=== PATIENT | female | born 1960 | race Caucasian/White ===

== ENCOUNTER 2021-07-03 08:25 | Outpatient (CLI) | payer OTHER, SELFPAY ==
--- NOTE | ~2021-07-03 | DEXA_ITS ---
Bone Density Report Name: Lucie Crocker Age: 61 Sex: Female Ethnicity: White Date of : 1960 Indication: postmenopausal; screening for osteoporosis; prior fracture; Referring Provider: Estuardo Plunkett Study: Bone densitometry was performed. Exam Date: July 03, 2021 Accession number: [id number] Bone Density: Region BMD T-score Z-score Classification AP Spine(L1-L4) 0.710 -3.1 -1.6 Osteoporosis Femoral Neck (Left) 0.517 -3.0 -1.7 Osteoporosis Total Hip (Left) 0.610 -2.7 -1.8 Osteoporosis Femoral Neck (Right) 0.547 -2.7 -1.4 Osteoporosis Total Hip (Right) 0.691 -2.1 -1.1 Osteopenia Femoral Neck Mean 0.532 -2.9 -1.6 Osteoporosis Total Hip Mean 0.650 -2.4 -1.4 Osteopenia World Health Organization criteria for BMD impression classify patients as: Normal (T-score at or above -1.0), Osteopenia (T-score between -1.0 and -2.5), or Osteoporosis (T-score at or below -2.5). 10-year Fracture Risk: FRAX not reported because: Some T-score for Spine Total or Hip Total or Femoral Neck at or below -2.5 Clinical Information Provided by Patient: Has had a low trauma fracture Has used the following medications: Vitamin D, Calcium Patient maximum height was 67 Menopause Age: 50 No regular weight bearing exercise Does not regularly consume dairy products Drinks caffeinated beverages Onset of menses at age 13 Number of children 0 Impression: The patient has established osteoporosis, based on the Total Spine T-score and the existence of a prior fracture. The patient has risk factors, including: previous fracture. Discussion: HIGH RISK OF FRACTURE. BONE DENSITY IS UNDESIRABLY LOW AT ONE OR MORE SKELETAL SITES, CONSISTENT WITH POSTMENOPAUSAL OSTEOPOROSIS. This patient's lowest T-score, in a patient who has previously fractured, meets the World Health Organization's (WHO) criteria for severe osteoporosis. In untreated patients, the risk of osteoporotic fracture increases approximately two-fold for each 1.0 SD decrease in T-score. Low bone density is not the only risk factor for fracture; also consider factors such as patient's age, frailty or poor health, risk of falling, risk of injury, previous osteoporotic fracture, family history of osteoporosis, cigarette smoking, low body weight, etc. Not everyone with low bone mineral density has osteoporosis; osteomalacia and other metabolic bone disorders should also be considered. Patients who have osteoporosis should be evaluated for specific diseases and conditions (secondary causes) that may cause or contribute to bone loss. The [place] [employer] (AACE) and National Osteoporosis Foundation (NOF) recommend pharmacologic intervention for all postmenopausal women whose T-score is in this range. The patient should follow a he
--- NOTE | ~2021-07-03 | MM_ITS ---
EXAMINATION: MM screening urvashi BI w sofia HISTORY: Screening mammogram TECHNIQUE: Craniocaudal and mediolateral oblique 3-D tomosynthesis images were obtained and synthetic 2-D images were generated. CAD analysis was submitted and interpreted. COMPARISON: 02/27/2010, 12/07/2008 bilateral digital screening mammogram examinations BREAST PARENCHYMAL COMPOSITION: The breasts are heterogeneously dense, which may obscure small masses . FINDINGS: There is no evidence of suspicious mass, calcification, or architectural distortion to sugg est malignancy in either breast. There has been no suspicious interval change. IMPRESSION: 1. No mammographic evidence of malignancy. 2. Recommend routine screening mammography in one year. BI-RADS Category 1: Negative Reviewed, dictated and finalized at location A.
== END 2021-07-03 08:26 | disposition home or self-care (01) ==
LOC: CHSIMG 08:30
PROVIDERS: PCP Internal Medicine; Visit Provider Internal Medicine
DX: Z12.31 Encounter for screening mammogram for malignant neoplasm of breast (principal); Z78.0 Asymptomatic menopausal state
CPT/HCPCS: 77063; 77067; 77080

== ENCOUNTER 2022-09-15 09:57 | Emergency (ER) | payer OTHER, SELFPAY ==
--- NOTE | ~2022-09-15 | XR_ITS ---
XR chest 2V DATE: 09/15/2022 11:02 INDICATION: Cough for 4 days TECHNIQUE: 2 views, PA and lateral projections COMPARISON: 10/08/2014 PA and lateral chest FINDINGS: Normal heart size. No hilar or mediastinal enlargement. No pulmonary infiltrate or consolid ation, pleural effusion or pulmonary vascular congestion or pneumothorax is detected. There is osteopenia. IMPRESSION: No active cardiopulmonary disease Reviewed, dictated and finalized at location L. DOWN WORKER
[2022-09-15 10:00] VITALS: BP 148/90; PULSE 94; RESP 18; TEMP 36.9; O2SAT 96
--- NOTE | 2022-09-15 10:31 | ED.URI ---
HPI - URI/Sore Throat General Chief Complaint: Upper Respiratory Infection Stated Complaint: trouble breathing,deep cough Time Seen by Provider: 09/15/22 10:30 Source: patient and RN notes reviewed Mode of arrival: ambulatory Limitations: no limitations History of Present Illness HPI Narrative: patient has been having cough x4 days. She has coughed up some clear fluid just on 1 episode in last 4 days. She has had some body aches, no nausea vomiting, she said after she coughed really hard she had a scratchy throat but no sore throat as an isolated symptom. She has not had any fever chills. She has been taking [id number] cough medicines she tried 1 that someone else had recommended an last night seemed to make her dizzy. She states that she is allergic to all steroids. She has been a smoker in the past and quit for some time and then took up vaping with nicotine. MD elicited complaint: cough and sore throat (from coughing) Onset (ago): day(s) (4) Consistency: constant and progressively worsening Severity: moderate Description of mucous: clear Able to tolerate fluids by mouth: Yes Exacerbating factors: nothing Relieving factors: nothing Associated symptoms: myalgias Treatments prior to arrival: cold medicine Related Data Home Medications Medication Instructions Recorded Confirmed calcium carbonate-vitamin D3 500 1 cap PO DAILY 09/15/22 09/15/22 mg (1,250 mg)-50 unit capsule calcium polycarbophil 625 mg 1,250 mg PO DAILY 09/15/22 09/15/22 tablet (FiberCon) Allergies Allergy/AdvReac Type Severity Reaction Status Date / Time tetracycline Allergy Unknown Hives Verified 09/15/22 10:10 STEROIDS AdvReac Unknown BAD SIDE Uncoded 01/13/17 08:32 EFFECTS Review of Systems Review of Systems: All systems reviewed & are unremarkable except as noted in HPI and below Constitutional: Constitutional: Denies chills and Denies fever(s) Gastrointestinal: Gastrointestinal: Denies nausea and Denies vomiting [facility] Past Medical History Medical History (Updated 09/15/22 @ 11:38 by Harinder Brand MD) Diverticulosis Osteoporosis Surgical History Surgical History (Updated 09/15/22 @ 11:34 by Harinder Brand MD) No pertinent past surgical history Social History Social History (Updated 09/15/22 @ 11:34 by Harinder Brand MD) Smoking status: Current every day smoker Tobacco type: e-cigarettes/vaping Exam Const: General: healthy appearing, no acute distress and alert Nutritional Appearance: well nourished Orientation/consciousness: patient oriented x3 Limitations: no limitations HENMT: Head: normal to inspection Ears: external ears normal Eyes: Conjunctivae: conjunctivae normal Pupils: Equal, round and reactive pupils present EOM: EOMs intact bilaterally Neck: Neck: normal visual inspection Resp: Effort & Inspection: normal respiratory effort Auscultation: rales diffuse and wheezes scattered wheezes Cardio: Rate: regular rate Rhythm: regular rhythm GI: GI Palp: Yes Soft to palpation and No Tenderness to palpation present (GI) Auscultation: normal bowel sounds Back/Spine/Pelvis: Cervical Spine: cervical ROM normal Thoracic/Lumbar Spine: thoraco-lumbar ROM normal Skin: General skin exam: normal color Rashes: no rashes Neuro: General: patient oriented x3, moves all extremities, no focal motor deficits and CN's II-XI intact bilaterally Speech: normal speech Gait exam (Neuro): Normal gait present Extrem: General: normal to inspection and no clubbing, cyanosis or edema Psych: Mental Status: mental status grossly normal Affect: normal affect Attitude: cooperative Course Vital Signs Vital signs: Vital Signs Temperature 36.9 C 09/15/22 10:00 Pulse Rate 94 09/15/22 10:00 Respiratory Rate 18 09/15/22 10:00 Blood Pressure 148/90 H 09/15/22 10:00 Pulse Oximetry 96 09/15/22 10:00 Oxygen Delivery Room Air 09/15/22 10:00 Temperature 36.9 C 09/15/22 10:00 P
[2022-09-15 11:25] LABS: Influenza A QL RT-PCR Negative (Negative); Influenza B QL RT-PCR Negative (Negative); SARS-CoV-2 RNA PCR Negative (Negative)
[2022-09-15 11:45] VITALS: BP 145/89; PULSE 94; RESP 16; TEMP 36.8; O2SAT 99
== END 2022-09-15 11:50 | disposition home or self-care (01) ==
PROVIDERS: Emergency Provider Emergency Medicine; PCP Internal Medicine
DX: J40 Bronchitis, not specified as acute or chronic (principal); M81.0 Age-related osteoporosis without current pathological fracture; Z20.822 Contact with and (suspected) exposure to COVID-19
CPT/HCPCS: 71046; 87502; 99283; U0003; U0005

== ENCOUNTER 2022-09-23 13:33 | Outpatient (CLI) | payer OTHER, SELFPAY ==
--- NOTE | ~2022-09-23 | MM_ITS ---
EXAMINATION: MM screening urvashi BI w sofia HISTORY: Screening mammogram TECHNIQUE: Craniocaudal and mediolateral oblique 3-D tomosynthesis images were obtained and synthetic 2-D images were generated. CAD analysis was submitted and interpreted. COMPARISON: 07/03/2021, 02/27/2010 bilateral screening mammogram examinations BREAST PARENCHYMAL COMPOSITION: There are scattered areas of fibroglandular density. FINDINGS: There is no evidence of suspicious mass, calcification, or architectural distortion to sugg est malignancy in either breast. There has been no suspicious interval change. IMPRESSION: 1. No mammographic evidence of malignancy. 2. Recommend routine screening mammography in one year. BI-RADS Category 1: Negative Reviewed, dictated and finalized at location A. K PLUG ASSEMBLER
== END 2022-09-23 13:34 | disposition home or self-care (01) ==
LOC: CHSIMG 13:36
PROVIDERS: PCP Internal Medicine; Visit Provider Internal Medicine
DX: Z12.31 Encounter for screening mammogram for malignant neoplasm of breast (principal)
CPT/HCPCS: 77063; 77067

== ENCOUNTER 2022-09-30 09:46 | Outpatient (CLI) | payer OTHER, SELFPAY ==
[2022-09-30 10:00] LABS: Basophils Absolute Auto 0.06 K/mm3 (0.00-0.10); Basophils Percent Auto 1.2 % (0.0-1.0); Eosinophils Absolute Auto 0.23 K/mm3 (0.02-0.50); Eosinophils Percent Auto 4.4 % (1.0-6.0); Hematocrit 44.5 % (35.0-49.0); Hemoglobin 14.4 g/dL (12.0-15.0); Immature Granulocyte Absolute 0.01 K/mm3 (0.00-0.00); Immature Granulocyte Percent A 0.2 % (0.0-0.0); Lymphocytes Absolute Auto 1.66 K/mm3 (1.10-4.50); Lymphocytes Percent Auto 32.1 % (18.0-42.0); Mean Corpuscular HGB Conc 32.4 g/dL (32.0-36.0); Mean Corpuscular Hemoglobin 28.9 pg (27.0-31.0); Mean Corpuscular Volume 89.2 fL (78.0-102.0); Monocytes Percent Auto 5.8 % (2.0-11.0); Neutrophils Absolute Auto 2.9 K/mm3 (1.7-7.2); Neutrophils Percent Auto 56.3 % (50.0-70.0); Platelet Count Result 373 K/mm3 (150-420); Red Blood Count 4.99 M/mm3 (4.20-5.40); Red Cell Distribution Width 13.6 % (11.6-14.4); White Blood Count 5.2 K/mm3 (4.8-10.8)
[2022-09-30 10:02] LABS: Add Urine Microscopic? YES; Appearance Urine Clear (Clear); Bilirubin Urine Negative (Negative); Blood Urine Trace-Intact (Negative); Color Urine Yellow (Yellow); Glucose Urine UA Negative (Negative); Ketones Urine Negative (Negative); Leukocyte Esterase Ur Trace (Negative); Nitrate Urine Negative (Negative); Protein Urine Negative (Negative); Specific Grav Ur >= 1.030 (1.010-1.020); Urobilinogen Urine 0.2 mg/dL (0.2-1.0); pH Urine 5.5 (5.0-8.0)
[2022-09-30 10:08] LABS: Bacteria Urine 1+ /hpf; Mucus Urine Moderate /lpf; RBC Urine 0-2 /hpf (0-2); Squamous Epithelial Cell Urine Few /hpf (Few); WBC Urine 0-3 /hpf (0-3)
[2022-09-30 10:38] LABS: Alanine Aminotransferase 20 U/L (14-59); Albumin Level 3.8 g/dL (3.4-5.0); Alkaline Phosphatase 117 U/L (46-116); Anion Gap 8 mmol/L (8-16); Aspartate Amino Transferase 14 U/L (15-37); Bilirubin,Total 0.7 mg/dL (0.00-1.00); Blood Urea Nitrogen 15 mg/dL (7-18); Calcium 8.9 mg/dL (8.5-10.1); Carbon Dioxide 27 mmol/L (21-32); Chloride 104 mmol/L (98-108); Cholesterol 243 mg/dL (0-200); Estimated Glomerular Filt Rate > 60; Glucose 93 mg/dL (70-99); HDL Direct 79 mg/dL (40-60); LDL Cholesterol Calculated 147 mg/dL (<130); Osmolality Calculated 288 mOsm/kg (285-295); Potassium 3.9 mmol/L (3.5-5.1); Sodium 139 mmol/L (136-145); Thyroid Stimulating Hormone 8.59 uIU/mL (0.36-3.74); Total Protein 7.6 g/dL (6.4-8.2); Triglycerides 87 mg/dL (0-150)
== END 2022-09-30 09:47 | disposition home or self-care (01) ==
LOC: CHSLAB 09:48
PROVIDERS: PCP Internal Medicine; Visit Provider Internal Medicine
DX: Z00.00 Encounter for general adult medical examination without abnormal findings (principal)
CPT/HCPCS: 36415; 80053; 80061; 81001; 84443; 85025

== ENCOUNTER 2023-04-08 09:11 | Outpatient (CLI) | payer OTHER, SELFPAY ==
[2023-04-08 10:13] LABS: Alanine Aminotransferase 21 U/L (14-59); Albumin Level 3.7 g/dL (3.4-5.0); Alkaline Phosphatase 103 U/L (46-116); Anion Gap 10 mmol/L (8-16); Aspartate Amino Transferase 17 U/L (15-37); Bilirubin,Total 0.7 mg/dL (0.00-1.00); Blood Urea Nitrogen 16 mg/dL (7-18); Carbon Dioxide 26 mmol/L (21-32); Chloride 107 mmol/L (98-108); Estimated Glomerular Filt Rate > 60; Free T3 2.45 pg/mL (2.18-3.98); Free T4 Free Thyroxine 0.99 ng/dL (0.76-1.46); Glucose 90 mg/dL (70-99); Osmolality Calculated 297 mOsm/kg (285-295); Potassium 4.1 mmol/L (3.5-5.1); Sodium 143 mmol/L (136-145); Thyroid Stimulating Hormone 7.02 uIU/mL (0.36-3.74); Total Protein 7.1 g/dL (6.4-8.2)
[2023-04-09 11:13] LABS: Cholesterol 213 mg/dL (0-200); HDL Direct 78 mg/dL (40-60); LDL Cholesterol Calculated 125 mg/dL (<130); Triglycerides 51 mg/dL (0-150)
[2023-04-13 05:28] LABS: Thyroid Peroxidase Antibodies 116 IU/mL (<9)
== END 2023-04-08 09:12 | disposition home or self-care (01) ==
LOC: CHSLAB 09:14
PROVIDERS: PCP Internal Medicine; Visit Provider Internal Medicine
DX: E03.9 Hypothyroidism, unspecified (principal); E78.5 Hyperlipidemia, unspecified
CPT/HCPCS: 36415; 80053; 80061; 84439; 84443; 84481; 86376

== ENCOUNTER 2023-04-16 11:29 | Outpatient (CLI) | payer OTHER, SELFPAY ==
--- NOTE | ~2023-04-16 | XR_ITS ---
Left Hand Technique: PA, oblique, and lateral views were obtained. Clinical History: Thumb pain Findings: No acute fracture or dislocation is seen. There is severe osteoarthrosis at the first CMC j oint. Remaining joint spaces are preserved. Soft tissues are unremarkable. 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 Reviewed, dictated and finalized at location . 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
== END 2023-04-16 11:30 | disposition home or self-care (01) ==
LOC: CHSIMG 11:31
PROVIDERS: PCP Internal Medicine; Visit Provider Internal Medicine
DX: M79.645 Pain in left finger(s) (principal); M18.12 Unilateral primary osteoarthritis of first carpometacarpal joint, left hand
CPT/HCPCS: 73120

== ENCOUNTER 2023-08-23 11:27 | Outpatient (CLI) | payer OTHER, SELFPAY ==
[2023-08-23 11:45] LABS: Basophils Absolute Auto 0.07 K/mm3 (0.00-0.10); Basophils Percent Auto 1.2 % (0.0-1.0); Eosinophils Absolute Auto 0.26 K/mm3 (0.02-0.50); Eosinophils Percent Auto 4.6 % (1.0-6.0); Hematocrit 42.6 % (35.0-49.0); Hemoglobin 13.8 g/dL (12.0-15.0); Immature Granulocyte Absolute 0.03 K/mm3 (0.00-0.00); Immature Granulocyte Percent A 0.5 % (0.0-0.0); Lymphocytes Absolute Auto 1.65 K/mm3 (1.10-4.50); Lymphocytes Percent Auto 29.3 % (18.0-42.0); Mean Corpuscular HGB Conc 32.4 g/dL (32.0-36.0); Mean Corpuscular Hemoglobin 29.3 pg (27.0-31.0); Mean Corpuscular Volume 90.4 fL (78.0-102.0); Mean Platelet Volume 9.2 fl (9.2-11.8); Monocytes Absolute Auto 0.36 K/mm3 (0.10-0.90); Monocytes Percent Auto 6.4 % (2.0-11.0); Neutrophils Absolute Auto 3.3 K/mm3 (1.7-7.2); Platelet Count Result 305 K/mm3 (150-420); Red Blood Count 4.71 M/mm3 (4.20-5.40); Red Cell Distribution Width 13.8 % (11.6-14.4); White Blood Count 5.6 K/mm3 (4.8-10.8)
[2023-08-23 12:13] LABS: Alanine Aminotransferase 24 U/L (14-59); Albumin Level 3.9 g/dL (3.4-5.0); Alkaline Phosphatase 94 U/L (46-116); Anion Gap 4 mmol/L (8-16); Aspartate Amino Transferase 20 U/L (15-37); Bilirubin,Total 0.6 mg/dL (0.00-1.00); Blood Urea Nitrogen 19 mg/dL (7-18); Calcium 9.1 mg/dL (8.5-10.1); Carbon Dioxide 31 mmol/L (21-32); Chloride 103 mmol/L (98-108); Estimated Glomerular Filt Rate > 60; Free T3 2.84 pg/mL (2.18-3.98); Free T4 Free Thyroxine 0.96 ng/dL (0.76-1.46); Glucose 96 mg/dL (70-99); Osmolality Calculated 288 mOsm/kg (285-295); Potassium 4.4 mmol/L (3.5-5.1); Sodium 138 mmol/L (136-145); Total Protein 7.4 g/dL (6.4-8.2)
[2023-08-23 12:19] LABS: CRP < 0.5 mg/dL (0.0-0.9)
== END 2023-08-23 11:28 | disposition home or self-care (01) ==
LOC: CHSLAB 11:31
PROVIDERS: PCP Internal Medicine; Visit Provider Internal Medicine
DX: H53.9 Unspecified visual disturbance (principal); R05.9 Cough, unspecified; E03.9 Hypothyroidism, unspecified
CPT/HCPCS: 36415; 80053; 84439; 84443; 84481; 85025; 86140

== ENCOUNTER 2024-09-21 08:16 | Outpatient (CLI) | payer OTHER, SELFPAY ==
--- NOTE | ~2024-09-21 | MM_ITS ---
EXAMINATION: MM screening urvashi BI w sofia HISTORY: Screening TECHNIQUE: Craniocaudal and mediolateral oblique 3-D tomosynthesis images were obtained and synthetic 2-D images were generated. CAD analysis was submitted and interpreted. COMPARISON: Comparison to multiple prior studies sequentially, with oldest reviewed study dated 06/14. BREAST PARENCHYMAL COMPOSITION: Not dense: There are scattered areas of fibroglandular density. FINDINGS: There is no evidence of suspicious mass, calcification, or architectural distortion to sugg est malignancy in either breast. There has been no suspicious interval change. IMPRESSION: 1. No mammographic evidence of malignancy. 2. Recommend routine screening mammography in one year. BI-RADS Category 1: Negative Reviewed, dictated and finalized at location B. LIENT TILE INSTALLER
== END 2024-09-21 08:17 | disposition home or self-care (01) ==
LOC: CHSIMG 08:17
PROVIDERS: PCP Internal Medicine; Visit Provider Internal Medicine
DX: Z12.31 Encounter for screening mammogram for malignant neoplasm of breast (principal)
CPT/HCPCS: 77063; 77067

== ENCOUNTER 2024-10-26 09:07 | Outpatient (CLI) | payer OTHER, SELFPAY ==
--- OUTSIDE RECORDS SUMMARY | 2024-10-26 09:27 | XMS_ITS | Clinical Summary ---
Author Organization [facility] Address [address] [place] [id number] Care Team Providers Care Chemistry Tutor Name Role Phone Unavailable Primary Care Provider Unavailabl e Social History Tobacco Use Types Packs/Day Years Used Date Smoking Tobacco: Never Assessed Comments Unknown Sex and Gender Information Value Date Recorded Sex Assigned at Not on file Legal Sex Female 7:24 PM CDT Gender Identity Not on file Sexual Orientation Not on file Plan of Treatment Health Maintenance Due Date Last Done Comments Cervical Cancer Screening Pa p Smear (Age 30 to 64) Every 3 Years 1960 Colorectal Cancer Screening Colonoscopy (10 Years) 1960 Annual Physical 01/03/1964 Hepatitis C 1979 DTaP, Tdap and Td Vaccines ( 1 - Tdap) 01/03/1980 Cervical Cancer Screening Pa p with HPV Testing (Age 30 to 64) Every 5 Years 1991 Cervical Cancer Screening with HPV 1991 Mammogram Screening 2001 Zoster Vaccines (1 of 2) 2011 COVID-19 Vaccine (2023-2 5 season) 2024 Influenza Adult (#1) 2024 RSV Immunization or 60+ Years (1 - 1-dose 75+ series) 01/03/2036 Meningococcal B Vaccine Aged Out No l onger eligible based on patient's age to complete this topic Meningococcal Vaccine Aged Out No omkar vinny eligible based on patient's age to complete this topic Pneumococcal Vaccine: Pediat rics (0 to 5 Years) and At-Risk Patients (6 to 64 Years) Aged Out No longer eligible b ased on patient's age to complete this topic RSV Immunizations Under 20 Months Aged Out No longer eligible based on patient's age to complete this topic
--- OUTSIDE RECORDS SUMMARY | 2024-10-26 09:27 | XMS_ITS | Clinical Summary ---
Author Organization [facility] Address [address] [place] [address] Phone Care Team Providers Care Border [employer] Name Role Phone Estuardo Plunkett MD Primary Care Provider [phone] Allergies Active Allergy Reactions Criticality Noted Date Comments Tetracycline Rash 10/09/2024 Medications buPROPion (WELLBUTRIN) 150 MG XL tablet Take 150 mg by mouth every morning. Active naltrexone (DEPADE) 50 MG Tablet Take 50 mg by mouth daily. Active polycarbophil calcium (FiberCon) 625 MG Tablet Take 625 mg by mouth 2 times daily. Takes 2 tablets bid Active Cholecalciferol (VITAMIN D-3 PO) Take 1 Tablet by mouth daily. Active MAGNESIUM PO Take 1 Tablet by mouth 2 times daily. Active Nutritional Supplements (JUICE PLUS FIBRE PO) Take 2 Capsules by mouth daily. Active aspirin 81 MG Chewable Tablet Take 1 Tablet by mouth daily for 90 days. 90 Tablet 5 01/10/20 25 Active amLODIPine (NORVASC) 5 MG Tablet Take 1 Tablet by mouth daily for 90 days. 90 Tablet 5 01/10/20 25 Active atorvastatin (LIPITOR) 20 MG Tablet Take 1 Tablet by mouth daily. 90 Tablet 5 Active famotidine (PEPCID) 20 MG Tablet Take 1 Tablet by mouth 2 times daily for 90 days. 90 Tablet 5 01/09/20 25 Active Active Problems Problem Noted Date Diagnosed Date Hyperlipidemia 10/10/2024 Diverticulitis Hypertension Resolved Problems Problem Noted Date Diagnosed Date Resolved Date Chest pain 10/09/2024 10/10/2024 Constipation 10/10/2024 Encounters Date Type Department Care Team Description 10/11/2024 Post Discharge Follow-up [facility] [address] [place] [address] Amy Lara RN 10/09/2024 2:08 PM BROOM BUILDER - 10/10/2024 4:35 PM BROOM BUILDER Emergency [facility] Med Surg [address] [place] [address] Kalyn Vázquez, RADAR ENGINEERING TEACHER, MUFF WINDER Chula Moore MD Chest pain Discharge Disposition: Discharged to home or Selfcare 10/09/2024 Travel from Last 3 Months Family History Medical History Relation Name Comments Congestive Heart Failure Brother Heart Attack Brother Hypertension Father Hypertension Mother Relation Name Status Comments Brother Father Mother Social History Tobacco Use Types Packs/Day Years Used Date Smoking Tobacco: Former Cigarettes Smokeless Tobacco: Former Comments:Pt stop smoking tob acco 10yrs ago and stopped vaping 3 yrs ago [facility] [employer] Answer Date Recorded In the past 12 months has [employer] electric, gas, oil, or water company threatened to shut off services in your home? No 10/09/2024 Social Connection and Isolation Panel [NHANES] A nswer Date Recorded In a typical week, how many times do you talk on the phone with family, friends, or neighbors? Once a week 10/09/2024 How often do you get together with friends or re latives? Once a week 10/09/2024 How often do you attend caodaism or zoroastrianism serv ices? Never 10/09/2024 Do you belong to any clubs o r organizations such as caodaism groups, unions, fraternal or athletic groups, or school groups? No 10/09/2024 How often do you attend meet ings of the clubs or organizations you belong to? Never 10/09/2024 Are you , , di vorced, , never , or living with a partner? 10/09/2024 AUDIT-C Answer Date Recorded Q1: How often do you have a drink containing alc ohol? Monthly or less 10/09/2024 Q2: How many drinks containi ng alcohol do you have on a typical day when you are drinking? 3 or 4 10/09/2024 Q3: How often do you have si x or more drinks on one occasion? Less than monthly 10/09/2024 Overall Financial Resource Strain (CARDIA) Answe r Date Recorded How hard is it for you to pa y for the very basics like food, housing, medical care, and heating? Somewhat hard 10/09/2024 [facility] - Occupational Stress Questionnaire Answer Date Recorded Do you feel stress - tense, restless, nervous, or anxious, or unable to sleep at night because your mind is troubled all the time - these days? Very much 10/09/2024 Exercise Vital Sign Answer Date Recorde d On average, how many days pe r week do you engage in moderate to strenuous exercise (like a brisk walk)? 0 days 10/09/2024 On average, how many minutes do you engage in exercise at this level? 0 min 10/09/2024 Hunger Vital Sign Answer Date Recorded Within the past 12 months, y ou worried that your food would run out before you got the money to buy more. Never true 10/09/19 25 Within the past 12 months, t he food you bought just didn't last and you didn't have money to get more. Never true 10/09/2024 PRAPARE - Transportation Answer Date Re corded In the past 12 months, has l ack of transportation kept you from medical appointments or from getting medications? No 09/14 In the past 12 months, has l ack of transportation kept you from meetings, work, or from getting things needed for daily living? No 10/09/2024 Housing Stability Vital Sign Answer Axel e Recorded In the last 12 months, was t here a time when you were not able to pay the mortgage or rent on time? No 10/09/2024 In the past 12 months, how m any times have you moved where you were living? 1 10/09/2024 At any time in the past 12 m [facility], were you homeless or living in a senior care (including now)? No 10/09/2024 Comments No Sex and Gender Information Value Date Recorded Sex Assigned at Not on file Legal Sex Female 2:06 PM BROOM BUILDER Gender Identity Not on file Sexual Orientation Not on file Last Filed Vital Signs Vital Sign Reading Time Taken Comments Blood Pressure 156/97 10/10/2024 12:00 PM BROOM BUILDER Pulse 67 10/10/2024 12:00 PM BROOM BUILDER Temperature 36.8 C (98.2 F) 10/10/2024 12:00 PM BROOM BUILDER Respiratory Rate 18 10/10/2024 12:00 PM BROOM BUILDER Oxygen Saturation 99% 10/10/2024 12:00 PM BROOM BUILDER Inhaled Oxygen Concentration - - Weight 80.3 kg (177 lb) 10/10/2024 8:58 AM BROOM BUILDER Height 170.2 cm (5' 7 ) 10/10/2024 8:58 AM BROOM BUILDER Body Mass Index 27.72 10/10/2024 8:58 AM BROOM BUILDER Plan of Treatment Health Maintenance Due Date Last Done Comments Hepatitis C Virus (HCV) Screening 1960 Pap Smear 1982 Cervical Cancer Screening (CCS) 1991 HPV/Cotest 1991 Colonoscopy 2006 Colorectal Cancer Screening 2006 Cologuard 2011 Immunochemical Fecal Occult Blood 2011 Mammogram 2011 Pneumococcal Immunization (50+ years) (1 of 1 - PCV) 2011 Zoster Immunization (1 of 2) 2011 SARS-COV-2 Immunization (3 - season) 2024 04/16/2021, 03/26/2021 Respiratory Syncytial Virus (RSV) Immunization (Adult) (1 - 1-dose 75+ series) 01/03/2036 TdaP Immunization Completed 03/05/2020 Influenza Immunization Completed , 06/02/2023, 07/07/2022, Additional history exists Hepatitis B Immunization Aged Out No longer eligible based on patient's age to complete this topic Meningococcal Immunization (ACWY) Aged Out No longer eligible based on patient's age to complete this topic Rotavirus Immunization Aged Out No lo nger eligible based on patient's age to complete this topic Procedures Procedure Name Priority Date/Time Associated Diagnosis Comments NM CARD MULTI SPECT WITH WALL MOTION AND EJECTION FRACTION Stat with Interpretation 10/10/2024 9:32 AM BROOM BUILDER ADULT CV STRESS PHARMACOLOGIC W NUC MED Stat with Interpretation 10/10/2024 9:09 AM BROOM BUILDER LIPID PANEL Routine 10/10/2024 5:53 AM BROOM BUILDER BASIC METABOLIC PANEL W/ CALCIUM TOTAL Routine 10/10/2024 5:53 AM BROOM BUILDER CBC WITH AUTO DIFFERENTIAL Routine 10/10/2024 5:52 AM BROOM BUILDER COMPLETE BLOOD COUNT (CBC) WITH DIFF Routine 10/10/2024 5:52 AM BROOM BUILDER TROPONIN I, HIGH SENSITIVITY (HSTRP) STAT 10/10/2024 12:24 AM BROOM BUILDER RHYTHM STRIP 10/10/2024 12:00 AM BROOM BUILDER RHYTHM STRIP 10/10/2024 12:00 AM BROOM BUILDER RHYTHM STRIP 10/10/2024 12:00 AM BROOM BUILDER C-REACTIVE PROTEIN (CRP) QUANT STAT 10/09/2024 3:15 PM BROOM BUILDER TROPONIN I, HIGH SENSITIVITY (HSTRP) STAT 10/09/2024 3:15 PM BROOM BUILDER XR CHEST SINGLE VIEW STAT 10/09/2024 2:48 PM BROOM BUILDER CRITICAL CARE Routine 10/09/2024 2:30 PM BROOM BUILDER D-DIMER STAT 10/09/2024 2:25 PM BROOM BUILDER CBC WITH AUTO DIFFERENTIAL STAT 10/09/2024 2:23 PM BROOM BUILDER B-TYPE NATRIURETIC PEPTIDE (BNP) STAT 10/09/2024 2:23 PM BROOM BUILDER MAGNESIUM (MG) STAT 10/09/2024 2:23 PM BROOM BUILDER TROPONIN I, HIGH SENSITIVITY (HSTRP) STAT 10/09/2024 2:23 PM BROOM BUILDER CMP (COMPREHENSIVE METABOLIC PANEL) STAT 10/09/2024 2:23 PM BROOM BUILDER COMPLETE BLOOD COUNT (CBC) WITH DIFF STAT 10/09/2024 2:23 PM BROOM BUILDER EKG 12 LEAD STAT 10/09/2024 2:12 PM BROOM BUILDER RHYTHM STRIP 10/09/2024 12:00 AM BROOM BUILDER EKG SCAN 10/09/2024 12:00 AM BROOM BUILDER from Last 3 Months Results * NM CARD MULTI SPECT WITH WALL MOTION AND EJECTION FRACTION (10/10/2024 9:32 AM BROOM BUILDER) Anatomical Region Laterality Modality CARDIO N/A Nuclear Medicine 10/10/2024 10:3 3 AM BROOM BUILDER Impressions 10/10/2024 10:36 AM BROOM BUILDER IMPRESSION: Normal myocardial perfusion study. No scintigraphic evidence of myocardial ischemia. Normal left ventricular ejection fraction of greater than 75 % poststress. Normal wall motion. Narrative 10/10/2024 10:36 AM BROOM BUILDER EXAM DESCRIPTION: NM CARD MULTI SPECT WITH WALL MOTION AND EJECTION FRACTION REASON FOR STUDY: Chest pressure and shortness of breath for 3 days. RADIOPHARMACEUTICAL: Rest: 11.1 mCi Tc-99m tetrofosmin Pharmacologic Stress: 34.8 mCi Tc-99m tetrofosmin Injection site: Right antecubital vein IV site TECHNIQUE: Standard myocardial perfusion SPECT images were obtained after resting tracer injection. Subsequently, an intravenous infusion of 0.4 mg Lexiscan was performed. Standard myocardial perfusion images were obtained after tracer injection at the peak effect of the drug. COMPARISON: None FINDINGS: Image quality is adequate at rest and adequate at stress. Mild breast attenuation artifact in the anterior wall. No significant perfusion abnormalities. The left ventricular cavity size is normal . Gated tomographic images demonstrate normal wall motion and wall thickening with a left ventricular ejection fraction of greater than 75 % poststress (normal >45%). THIS IS AN ELECTRONICALLY VERIFIED FINAL REPORT 10/10/2024 10:33 AM - Electronically signed by Baudilio Lee M.D. LB: SHIRA Report ID: [id number] Reading Location: [id number] Procedure Note Baudilio Lee MD - 10/10/2024 EXAM DESCRIPTION: NM CARD MULTI SPECT WITH WALL MOTION AND EJECTION FRACTION REASON FOR STUDY: Chest pressure and shortness of breath for 3 days. RADIOPHARMACEUTICAL: Rest: 11.1 mCi Tc-99m tetrofosmin Pharmacologic Stress: 34.8 mCi Tc-99m tetrofosmin Injection site: Right antecubital vein IV site TECHNIQUE: Standard myocardial perfusion SPECT images were obtained after resting tracer injection. Subsequently, an intravenous infusion of 0.4 mg Lexiscan was performed. Standard myocardial perfusion images were obtained after tracer injection at the peak effect of the drug. COMPARISON: None FINDINGS: Image quality is adequate at rest and adequate at stress. Mild breast attenuation artifact in the anterior wall. No significant perfusion abnormalities. The left ventricular cavity size is normal . Gated tomographic images demonstrate normal wall motion and wall thickening with a left ventricular ejection fraction of greater than 75 % poststress (normal >45%). THIS IS AN ELECTRONICALLY VERIFIED FINAL REPORT 10/10/2024 10:33 AM - Electronically signed by Baudilio Lee M.D. LB: SHIRA Report ID: [id number] Reading Location: [place] [address] IMPRESSION: Normal myocardial perfusion study. No scintigraphic evidence of myocardial ischemia. Normal left ventricular ejection fraction of greater than 75 % poststress. Normal wall motion. Winter Wolf APRN, MUFF WINDER IMG NM CARDIAC NI OR DERABLES Final Result * ADULT CV STRESS PHARMACOLOGIC W NUC MED (10/10/2024 9:09 AM BROOM BUILDER) Anatomical Region Laterality Modality CARDIO N/A Electrocardiogra phy Narrative 10/10/2024 1:20 PM BROOM BUILDER Non-Imaging Stress Test Patient Name JUAN F GUERRERO Alla 1960 Patient ID (UPI) [id number] Indications: Chest pain. Study Date10/10/2024 Type of Study: Non-Imaging Stress Test: Pharmacological. Conclusions Summary - No stress induced ischemia as per EKG criteria. - Nuclear images were documented separately. Rest ECG Normal sinus rhythm. Normal ST segment response without evidence of ischemia. No ectopy or arrhythmia. Standing HR:68 bpmStanding BP:157/96 mmHg Results ECG Normal sinus rhythm. Normal ST segment response without evidence of ischemia. No ectopy or arrhythmia. Symptoms Shortness of breath. Stress Stress Type - Protocol:Pharmacologic - Lexiscan Protocol Peak HR: 106 bpm [id number] Peak BP: 140/88 mmHg Predicted HR: 157 bpm % of predicted HR: 68 Test Duration: 5:00 min Reason for Termination: Completed Stress Protocol:Pharmacologic - Lexiscan Protocol +-----+---------+-----+------+-----+ +------+--------+--+--------+----+ ----- -+ !Stage!Stage !Time !Dosage!Heart!Other !Dosage!Blood !CP!Pain !Pain!Pain ! !# !Name ! ! !Rate !Medication! !Pressure! !Location!Type!Action! +-----+---------+-----+------+-----+ +------+--------+--+--------+----+ ----- -+ !0.0 !PREINFSN !03:37! !76 ! ! !157/96 ! ! ! ! ! ! !SUPINE ! ! ! ! ! ! ! ! ! ! ! +-----+---------+-----+------+-----+ +------+--------+--+--------+----+ ----- -+ !1.0 !INFUSION !00:25! !73 ! ! ! ! ! ! ! ! ! !DOSE 1 ! ! ! ! ! ! ! ! ! ! ! +-----+---------+-----+------+-----+ +------+--------+--+--------+----+ ----- -+ !2.0 !POSTINFSN!04:53! !94 ! ! !155/90 ! ! ! ! ! +-----+---------+-----+------+-----+ +------+--------+--+--------+----+ ----- -+ Demographics Age 64 Gender Female Race Height 67.01 in. Weight 177 lbs. BMI 27.72 kg/m^2 Stress Gas Main Fitter Helper Room 233 Nurse Jeremiah Handley RN Interpreting Boo Referring Physician Rey Physician Procedure Note Rey Haddad MD - 10/10/2024 Non-Imaging Stress Test Patient Name JUAN F Gold 1960 Patient ID ([facility]) [id number] Indications: Chest pain. Study Date10/10/2024 Type of Study: Non-Imaging Stress Test: Pharmacological. Conclusions Summary - No stress induced ischemia as per EKG criteria. - Nuclear images were documented separately. Rest ECG Normal sinus rhythm. Normal ST segment response without evidence of ischemia. No ectopy or arrhythmia. Standing HR:68 bpmStanding BP:157/96 mmHg Results ECG Normal sinus rhythm. Normal ST segment response without evidence of ischemia. No ectopy or arrhythmia. Symptoms Shortness of breath. Stress Stress Type - Protocol:Pharmacologic - Lexiscan Protocol Peak HR: 106 bpm [id number] Peak BP: 140/88 mmHg Predicted HR: 157 bpm % of predicted HR: 68 Test Duration: 5:00 min Reason for Termination: Completed Stress Protocol:Pharmacologic - Lexiscan Protocol +-----+---------+-----+------+-----+ +------+--------+--+--------+----+ ----- -+ !Stage!Stage !Time !Dosage!Heart!Other !Dosage!Blood !CP!Pain!Pain!Pain ! !# !Name ! ! !Rate !Medication! !Pressure!!Location!Type!Action! +-----+---------+-----+------+-----+ +------+--------+--+--------+----+ ----- -+ !0.0 !PREINFSN !03:37! !76 ! ! !157/96 ! !! ! ! ! !SUPINE ! ! ! ! ! ! ! !! ! ! +-----+---------+-----+------+-----+ +------+--------+--+--------+----+ ----- -+ !1.0 !INFUSION !00:25! !73 ! ! ! ! !! ! ! ! !DOSE 1 ! ! ! ! ! ! ! !! ! ! +-----+---------+-----+------+-----+ +------+--------+--+--------+----+ ----- -+ !2.0 !POSTINFSN!04:53! !94 ! ! !155/90 ! !! ! ! +-----+---------+-----+------+-----+ +------+--------+--+--------+----+ ----- -+ Demographics Age 64 Gender Female Race Height 67.01 in. Weight 177 lbs. BMI 27.72 kg/m^2 Stress Gas Main Fitter Helper Room 233 Nurse Jeremiah Handley RN Interpreting Haddad Referring Physician Rey Physician Winter Wolf APRN, CNP IMG STRESS Rachel l Result * (ABNORMAL) Lipid Panel (10/10/2024 5:53 AM BROOM BUILDER) CHOLESTEROL 223(H) <200 mg/dL 10/10/2024 6:21 AM BROOM BUILDER [facility] TRIGLYCERIDES 60 <150 mg/dL 10/10/2024 6:21 AM BROOM BUILDER [facility] HDL CHOLESTEROL 70 >40 mg/dL 6:21 AM BROOM BUILDER [facility] LDL 141(H) <130 mg/dL 10/10/2024 6:21 AM BROOM BUILDER [facility] VLDL 12 10 - 50 mg/dL 10/10/2024 6:21 AM BROOM BUILDER [facility] CHOL/HDL RATIO 3.2 0.0 - 4.4 10/10/2024 6:21 AM BROOM BUILDER [facility] NON-HDL CHOLESTEROL 153(H) <130 mg/dL 10/10/2024 6:21 AM BROOM BUILDER [facility] Blood Venipuncture / Unknown 10/10/2024 5:53 AM BROOM BUILDER 10/10/2024 5:53 AM BROOM BUILDER us Radha Diaz APRN, CNP CHEMISTRY ORDERABLES Rachel l Result [facility] [address] [place] [address] * (ABNORMAL) BMP with Ca, Total (10/10/2024 5:53 AM BROOM BUILDER) SODIUM 142 136 - 145 mmol/L 10/10/2024 6:21 AM BROOM BUILDER [facility] POTASSIUM 4.0 3.5 - 5.1 mmol/L 10/10/2024 6:21 AM [facility] CHLORIDE 111(H) 98 - 107 mmol/L 10/10/2024 6:21 AM [facility] CO2, VENOUS 23 22 - 30 mmol/L 10/10/2024 6:21 AM [facility] ANION GAP 12.0 <18.0 mmol/L 10/10/2024 6:21 AM [facility] GLUCOSE 93 70 - 99 mg/dL 10/10/2024 6:21 AM [facility] BUN 13 10 - 20 mg/dL 10/10/2024 6:21 AM [facility] CREATININE, BLOOD 0.78 0.60 - 1.00 mg/dL 10/10/2024 6:21 AM [facility] BUN/CREATININE RATIO 17 12 - 20 ratio 10/10/2024 6:21 AM [facility] CALCIUM 8.9 8.7 - 10.5 mg/dL 10/10/2024 6:21 AM [facility] GFR, ESTIMATED >60 >=60 10/10/2024 6:21 AM [facility] Comment: Creatinine Clearance is the preferred criteria for selecting drug dose adjustments in renally impaired patients. The GFR is provided as additional pertinent clinical information. GFR is reported in mL/min/1.73 sq m. Calculation based on the Chronic Kidney Disease Epidemiology Collaboration (CKD- EPI) equation refit without adjustment for race. GFR, EST. >60 >=60 025 6:21 AM [facility] GFR, EST. NONAFRICAN >60 >=60 10/10/2024 6:21 AM [facility] Blood Venipuncture / Unknown 10/10/2024 5:53 AM BROOM BUILDER 10/10/2024 5:53 AM BROOM BUILDER us Radha Diaz RADAR ENGINEERING TEACHER, MUFF WINDER CHEMISTRY ORDERABLES Rachel l Result [facility] [address] [place] [address] * (ABNORMAL) CBC with Auto Differential (10/10/2024 5:52 AM BROOM BUILDER) Only the most recent of2 resultswithin the time period is included. WBC 6.59 4.00 - 12.00 10(3)/mcL 10/10/2024 6:04 AM [facility] RBC 4.86 3.80 - 5.30 10(6)/mcL 10/10/2024 6:04 AM [facility] HEMOGLOBIN (HGB) 14.2 12.0 - 15.8 g/dL 10/10/2024 6:04 AM [facility] HEMATOCRIT (HCT) 42.9 36.0 - 47.0 % 10/10/2024 6:04 AM [facility] MCV 88.3 82.0 - 96.0 fL 10/10/2024 6:04 AM [facility] MCH 29.2 26.0 - 34.0 pg 10/10/2024 6:04 AM [facility] MCHC 33.1 31.0 - 36.0 g/dL 10/10/2024 6:04 AM [facility] PLATELET COUNT 290 140 - 440 10(3)/mcL 10/10/2024 6:04 AM [facility] RDW 14.0 11.8 - 15.5 % 10/10/2024 6:04 AM [facility] MPV 9.8 9.7 - 12.4 fL 10/10/2024 6:04 AM [facility] NEUTROPHILS 58.4 47.0 - 73.0 % 10/10/2024 6:04 AM [facility] LYMPHOCYTES 28.7 18.0 - 42.0 % 10/10/2024 6:04 AM [facility] MONOCYTES 8.8 4.0 - 12.0 % 10/10/2024 6:04 AM [facility] EOSINOPHILS 2.9 0.0 - 5.0 % 10/10/2024 6:04 AM [facility] BASOPHILS 1.2(H) 0.0 - 1.0 % 10/10/2024 6:04 AM [facility] ABSOLUTE NEUTROPHILS 3.85 1.60 - 7.70 10(3)/[facility] 10/10/2024 6:04 AM [facility] ABSOLUTE LYMPHOCYTES 1.89 1.30 - 3.20 10(3)/[facility] 10/10/2024 6:04 AM [facility] ABSOLUTE MONOCYTES 0.58 0.20 - 1.00 10(3)/[facility] 10/10/2024 6:04 AM [facility] ABSOLUTE EOSINOPHIL 0.19 0.00 - 0.40 10(3)/[facility] 10/10/2024 6:04 AM [facility] ABSOLUTE BASOPHILS 0.08 0.00 - 0.10 10(3)/[facility] 10/10/2024 6:04 AM [facility] NRBC PER 100 WBC 0 10/10/19 6:04 AM [facility] Blood Venipuncture / Unknown 10/10/2024 5:52 AM BROOM BUILDER 10/10/2024 5:52 AM BROOM BUILDER us Radha Diaz RADAR ENGINEERING TEACHER, MUFF WINDER HEMATOLOGY ORDERABLES Fin al Result [facility] [address] [place] [address] * TROPONIN I, HIGH SENSITIVITY (HSTRP) (10/10/2024 12:24 AM BROOM BUILDER) Only the most recent of3 resultswithin the time period is included. Pathologist [facility] TROPONIN I, HIGH SENSITIVITY- JACQUES 3 <=14 ng/L 10/10/2024 12:50 AM [facility] Comment: High-sensitivity troponin I results are reported in ng/L making the result appear to be 1,000 times higher than the contemporary troponin I value which is reported in ng/ml. Results from [facility]. Blood Venipuncture / Unknown 10/10/2024 12:24 AM BROOM BUILDER 10/10/2024 12:26 AM BROOM BUILDER us Radha Diaz RADAR ENGINEERING TEACHER, MUFF WINDER CHEMISTRY ORDERABLES Rachel l Result Performing Organization Address City/[facility] Co de Phone Number [facility] [address] [place] [address] * RHYTHM STRIP (10/10/2024 12:00 AM BROOM BUILDER) Only the most recent of4 resultswithin the time period is included. 10/10/2024 us Provider Scan IMG ECG ORDERABLES Final Result Performing Organization Address [facility] Co de Phone Number RESULTING AGENCY * C-Reactive Protein (CRP) Quant (10/09/2024 3:15 PM BROOM BUILDER) C-REACTIVE PROTEIN 0.31 <0.50 mg/dL 10/09/2024 5:10 PM BROOM BUILDER [facility] Blood Venipuncture / Unknown 10/09/2024 3:15 PM BROOM BUILDER 10/09/2024 3:39 PM BROOM BUILDER us Chula Barr MD CHEMISTRY ORDERABLES Final Re sult Performing Organization Address [facility] Co de Phone Number [facility] [address] [place] [address] * XR CHEST SINGLE VIEW (10/09/2024 2:48 PM BROOM BUILDER) Anatomical Region Laterality Modality Chest N/A Digital Radiogra phy 10/09/2024 3:01 PM BROOM BUILDER Impressions 10/09/2024 3:03 PM BROOM BUILDER IMPRESSION: Mild patchy left basilar airspace opacities, which is likely related to subsegmental atelectasis and less likely developing airspace disease. Narrative 10/09/2024 3:03 PM BROOM BUILDER EXAM DESCRIPTION: XR CHEST SINGLE VIEW REASON FOR STUDY: generalized chest pressure with shortness of breath x 2-3 days. TECHNIQUE: Single frontal radiographic view(s) of the chest. COMPARISON: None FINDINGS: The heart size is upper limits of normal. The pulmonary vasculature and mediastinum are grossly unremarkable. There is no definite evidence of a pneumothorax. There is no definite evidence of a focal consolidation or pleural effusion. There are mild patchy left basilar airspace opacities. The osseous structures are acutely grossly unremarkable. THIS IS AN ELECTRONICALLY VERIFIED FINAL REPORT 10/09/2024 3:01 PM - Electronically signed by Sarthak Reza D.O. PS: PS Report ID: [id number] Reading Location: [id number] Procedure Note Sarthak Reza DO - 10/09/2024 EXAM DESCRIPTION: XR CHEST SINGLE VIEW REASON FOR STUDY: generalized chest pressure with shortness of breath x 2-3 days. TECHNIQUE: Single frontal radiographic view(s) of the chest. COMPARISON: None FINDINGS: The heart size is upper limits of normal. The pulmonary vasculature and mediastinum are grossly unremarkable. There is no definite evidence of a pneumothorax. There is no definite evidence of a focal consolidation or pleural effusion. There are mild patchy left basilar airspace opacities. The osseous structures are acutely grossly unremarkable. THIS IS AN ELECTRONICALLY VERIFIED FINAL REPORT 10/09/2024 3:01 PM - Electronically signed by Sarthak Reza D.O. Sarthak Reza D.O. PS: PS Report ID: [id number] Reading Location: [id number] IMPRESSION: Mild patchy left basilar airspace opacities, which is likely related to subsegmental atelectasis and less likely developing airspace disease. Kalyn Vázquez APRN, BRIGHT IMG DIAGNOSTIC ORDERA BLES Final Result * Critical Care (10/09/2024 2:30 PM BROOM BUILDER) Narrative Nadeem Childress MD - 10/09/2024 2:30 PM BROOM BUILDER GurpreetKalyn jones APRN, CNP 10/09/2024 4:34 PM Critical Care Performed by: Kalyn Vázquez APRN, CNP Authorized by: Kalyn Vázquez APRN, CNP Critical care provider statement: Critical care time (minutes): 35 Critical care time was exclusive of: Separately billable procedures and treating other patients Critical care was necessary to treat or prevent imminent or life-threatening deterioration of the following conditions: Chest pain. Critical care was time spent personally by me on the following activities: Blood draw for specimens, development of treatment plan with patient or surrogate, discussions with consultants, evaluation of patient's response to treatment, examination of patient, obtaining history from patient or surrogate, ordering and performing treatments and interventions, ordering and review of laboratory studies, ordering and review of radiographic studies, pulse oximetry, re-evaluation of patient's condition and review of old charts I assumed direction of critical care for this patient from another provider in my specialty: no Care discussed with: admitting provider Kalyn Vázquez APRN, CNP PROCEDURE/MINOR SURGI MADELEINE ORDERABLES Final Result * D-DIMER [id number] (10/09/2024 2:25 PM BROOM BUILDER) Pathologist [facility] D DIMER <=0.27 <0.50 mcg/mL FEU 10/09/2024 2:50 PM BROOM BUILDER [facility] Blood Venipuncture / Unknown 10/09/2024 2:25 PM BROOM BUILDER 10/09/2024 2:32 PM BROOM BUILDER Narrative [facility] - 10/09/2024 2:50 PM BROOM BUILDER The FDA has approved this method to exclude the diagnosis of DVT and/or PE at the cutoff value of <0.50 mcg/mL FEU. Kalyn Vázquez APRN, CNP HEMATOLOGY ORDERABLES Final Result [facility] [place] [address] * Magnesium (Mg) [id number] (10/09/2024 2:23 PM BROOM BUILDER) Pathologist [facility] MAGNESIUM 2.2 1.6 - 2.6 mg/dL 10/09/2024 2:52 PM BROOM BUILDER [facility] Blood Venipuncture / Unknown 10/09/2024 2:23 PM BROOM BUILDER 10/09/2024 2:32 PM BROOM BUILDER Kalyn Vázquez RADAR ENGINEERING TEACHER, [employer] CHEMISTRY ORDERABLES Final Result [facility] [place] [address] * (ABNORMAL) Comprehensive Metabolic Panel (Cmp) [id number] (10/09/2024 2:23 PM BROOM BUILDER) Pathologist [facility] SODIUM 142 136 - 145 mmol/L 10/09/2024 2:52 PM BROOM BUILDER [facility] POTASSIUM 3.7 3.5 - 5.1 mmol/L 10/09/2024 2:52 PM [facility] CHLORIDE 107 98 - 107 mmol/L 10/09/2024 2:52 PM [facility] CO2, VENOUS 26 22 - 30 mmol/L 10/09/2024 2:52 PM [facility] ANION GAP 12.7 <18.0 mmol/L 10/09/2024 2:52 PM [facility] GLUCOSE 109(H) 70 - 99 mg/dL 10/09/2024 2:52 PM [facility] BUN 15 10 - 20 mg/dL 10/09/2024 2:52 PM [facility] CREATININE, BLOOD 0.94 0.60 - 1.00 mg/dL 10/09/2024 2:52 PM [facility] BUN/CREATININE RATIO 16 12 - 20 ratio 10/09/2024 2:52 PM [facility] TOTAL PROTEIN 8.3(H) 6.0 - 8.0 g/dL 10/09/2024 2:52 PM [facility] ALBUMIN 4.3 3.5 - 5.0 g/dL 10/09/2024 2:52 PM BROOM BUILDER [facility] A/G RATIO 1.1 1.0 - 2.2 10/09/2024 2:52 PM BROOM BUILDER [facility] CALCIUM 9.8 8.7 - 10.5 mg/dL 10/09/2024 2:52 PM BROOM BUILDER [facility] T BILI 0.4 0.2 - 1.2 mg/dL 10/09/2024 2:52 PM BROOM BUILDER [facility] SGOT (AST) 22 6 - 42 U/L 10/09/2024 2:52 PM BROOM BUILDER [facility] SGPT (ALT) 18 6 - 55 U/L 10/09/2024 2:52 PM BROOM BUILDER [facility] ALKALINE PHOSPHATASE 114 40 - 150 U/L 10/09/2024 2:52 PM BROOM BUILDER [facility] GFR, ESTIMATED >60 >=60 10/09/2024 2:52 PM BROOM BUILDER [facility] Comment: Creatinine Clearance is the preferred criteria for selecting drug dose adjustments in renally impaired patients. The GFR is provided as additional pertinent clinical information. GFR is reported in mL/min/1.73 sq m. Calculation based on the Chronic Kidney Disease Epidemiology Collaboration (CKD- EPI) equation refit without adjustment for race. GFR, EST. >60 >=60 025 2:52 PM BROOM BUILDER [facility] GFR, EST. NONAFRICAN 60 >=60 10/09/2024 2:52 PM BROOM BUILDER [facility] Blood Venipuncture / Unknown 10/09/2024 2:23 PM BROOM BUILDER 10/09/2024 2:32 PM BROOM BUILDER us Kalyn Vázquez APRN, [employer] CHEMISTRY ORDERABLES Final Result [facility] [place] [address] * B-Type Natriuretic Peptide (BNP) (10/09/2024 2:23 PM BROOM BUILDER) B TYPE NATRIURETIC PEPTIDE 29 <100 pg/mL 10/09/2024 5:41 PM BROOM BUILDER [facility] Blood Venipuncture / Unknown 10/09/2024 2:23 PM BROOM BUILDER 10/09/2024 2:32 PM BROOM BUILDER us Chula Barr MD CHEMISTRY ORDERABLES Final Re sult Performing Organization Address City/[facility]/ZIP Co de Phone Number [facility] [place] [address] * EKG 12 LEAD (10/09/2024 2:12 PM BROOM BUILDER) Ventricular Rate 71 BPM EXTERNAL EKG Atrial Rate 71 BPM EXTERNAL EKG P-R Interval 138 ms EXTERNAL EKG QRS Duration 80 ms EXTERNAL EKG Q-T Duration 340 ms EXTERNAL EKG QTC CALCULATION 369 ms EXTERNAL EKG P [place] 49 degrees EXTERNAL EKG R [place] 18 degrees EXTERNAL EKG T [place] 47 degrees EXTERNAL EKG 10/09/2024 2:12 PM BROOM BUILDER Impressions EXTERNAL EKG - 10/10/2024 3:03 PM BROOM BUILDER Normal sinus rhythm Nonspecific ST abnormality Abnormal ECG No previous ECGs available Confirmed by Pilo Wolf ([id number]) on 10/10/2024 3:03:22 PM Narrative Procedure Note Pilo Wolf MD - 10/10/2024 IMPRESSION: Normal sinus rhythm Nonspecific ST abnormality Abnormal ECG No previous ECGs available Confirmed by Pilo Wolf ([id number]) on 10/10/2024 3:03:22 PM us Nadeem Childress MD IMG ECG ORDERABLES Final R esult Performing Organization Address City/[facility]/ZIP Co de Phone Number EXTERNAL EKG * EKG SCAN (10/09/2024 12:00 AM BROOM BUILDER) 10/09/2024 us Provider Scan IMG ECG ORDERABLES Final Result RESULTING AGENCY from Last 3 Months Insurance MEDICAID AETNA [facility] Advance Directives * Full Code (Latest Code Status on File) Date Activated Date Inactivated Comments 10/09/2024 10:00 PM CPR-Full Parul tment: FULL ARREST: Attempt Resuscitation/CPR wit intubation and mechanical ventilation. PRE-ARREST: Use entire range of life support measures to stabilize the patient. Care Teams [employer] Relationship Specialty Start Date End Date Estuardo Plunkett MD [address] [place] [address] PCP - General Internal Medicine 10/09/24
== END 2024-10-26 09:08 | disposition home or self-care (01) ==
LOC: CHSCARD 09:09
PROVIDERS: PCP Internal Medicine; Visit Provider Internal Medicine
DX: R06.00 Dyspnea, unspecified (principal); R07.89 Other chest pain
CPT/HCPCS: 94060; 94726; 94729

== ENCOUNTER 2024-11-07 15:23 | Outpatient (CLI) | payer OTHER, SELFPAY ==
--- NOTE | 2024-11-07 15:31 | ECHO_ITS ---
Patient Info Name: Lucie Crocker Age: 64 years : 1960 Gender: Female Ht: 67 in Wt: 173 lbs BSA: 1.94 m2 HR: 72 bpm BP: 145 / 96 mmHg Technical Quality: Fair Exam Date: 11/07/2024 4:05 PM Exam Location: Echo Lab Patient Status: Outpatient Admit Date: 11/07/2024 Staff Ordering Physician: Estuardo Plunkett MD Anthropological Linguist: Kayce Hernandez RDCS Attending Provider: Estuardo Plunkett MD Exam Type: CA echo doppler color flow Study Info Indications - chest pain Complete two-dimensional, color flow and Doppler transthoracic echocardiogram is performed. Summary 1. Complete two-dimensional, color flow and Doppler transthoracic echocardiogram is performed. 2. Left ventricular chamber dimension is normal. 3. Left ventricular systolic function is normal, estimated at 60-65%. 4. The left ventricular diastolic function is grade I diastolic dysfunction. 5. E/e' 5 is not elevated. 6. No pulmonary hypertension, estimated pulmonary arterial systolic pressure is 29 mmHg. Left Ventricle E/e' 5 is not elevated. Left ventricular chamber dimension is normal. Left ventricular systolic function is normal, estimated at 60-65%. The left ventricular diastolic function is grade I diastolic dysfunction. Right Ventricle Right ventricular systolic function is normal and with normal TAPSE 2.3 cm. Right ventricular chamber dimension is normal. Left Atria Left atrial chamber dimension is normal. Right Atria Right atrial chamber dimension is normal. Aortic Valve The aortic valve is trileaflet. There is no aortic valve stenosis. There is no aortic valve regurgitation. Pulmonic Valve There is no pulmonic regurgitation. Mitral Valve There is no mitral valve stenosis. There is no mitral valve regurgitation. Tricuspid Valve There is no tricuspid valve regurgitation. No pulmonary hypertension, estimated pulmonary arterial systolic pressure is 29 mmHg. Pericardium/Pleural There is no pericardial effusion. Inferior Vena Cava Normal inferior vena cava with >50% collapse upon inspiration consistent with normal right atrial pressure, 5 mmHg. Aorta The aortic root size at the sinus of Valsalva is normal. Left Ventricular Outflow Tract Name Value Normal LVOT 2D LVOT Diameter 1.9 cm LVOT Doppler LVOT Peak Velocity 105 cm/s LVOT Peak Gradient 4 mmHg LVOT Mean Gradient 3 mmHg LVOT VTI 24 cm LVOT VTI/AV VTI Ratio 0.7 LVOT Stroke Volume 65 ml Pulmonic Valve Name Value Normal PV Doppler PV Peak Velocity 72 cm/s PV Peak Gradient 2 mmHg Mitral Valve Name Value Normal MV Doppler MV Peak Gradient 3 mmHg MV Mean Gradient 1 mmHg MV Decel [place] 223 cm/s2 MV PHT 84 ms MV Area (PHT) 2.6 cm2 4.0-5.0 MV Area (Cont Eq VTI) 2.2 cm2 MV Diastolic Function MV E Peak Velocity 64 cm/s MV A Peak Velocity 92 cm/s MV E/A 0.7 MV Decel Time 289 ms Tricuspid Valve Name Value Normal TV Regurgitation Doppler TR Peak Velocity 244 cm/s TR Peak Gradient 19 mmHg Estimated PAP/RSVP RA Pressure 5 mmHg <=5 PA Systolic Pressure 29 mmHg <36 RV Systolic Pressure 29 mmHg <36 Aortic Valve Name Value Normal AV Doppler AV Peak Velocity 147 cm/s AV Peak Gradient 8 mmHg AV Mean Gradient 4 mmHg AV VTI 35 cm AV Area (Cont Eq VTI) 1.8 cm2 >=3.0 AV Area (Cont Eq Hakeem) 2.0 cm2 AV V1/V2 Ratio 0.71 AV Regurgitation 2D LVOT Area 2.7 cm2 Ventricles Name Value Normal LV Dimensions 2D/MM IVS Diastolic Thickness (2D) 0.8 cm 0.6-1.0 LVID Diastole (2D) 4.5 cm 3.8-5.2 LVIW Diastolic Thickness (2D) 0.7 cm 0.6-0.9 LVID Systole (2D) 3.0 cm 2.2-3.5 LVOT Diameter 1.9 cm LV Mass (2D Cubed) 102.75 g 67.00-162.00 LV Mass Index (2D Cubed) 53 g/m2 43-95 Relative Wall Thickness (2D) 0.31 LV Fractional Shortening/Ejection Fraction 2D/MM LV Fractional Shortening (2D) 33 % 27-45 LV EF (2D Teicholz) 61 % 54-74 LV Diastolic Volume (4C MOD) 79 ml LV EF (4C MOD) 53 % LV Diastolic Length (4C) 7.6 cm LV Systolic Length (4C) 6.8 cm LV Stroke Volume (4C MOD) 42 ml Atria Name Value Normal LA Dimensions LA Volume (4C A-L) 55 ml RA Dimensions RA Area (4C) 14.2 cm2 <=18.0 Report Signatures
--- OUTSIDE RECORDS SUMMARY | 2024-11-07 17:55 | XMS_ITS | Clinical Summary ---
Author Organization [facility] Address [address] [place] [id number] Care Team Providers Care Bobbin Marker Name Role Phone Unavailable Primary Care Provider [...]
--- OUTSIDE RECORDS SUMMARY | 2024-11-07 17:55 | XMS_ITS | Clinical Summary ---
Author Organization [facility] Address [address] [place] [address] Phone Care Team Providers Care Singing Telegram Performer Name Role Phone Estuardo Plunkett MD Primary Care Provider [phone] Allergies Active Allergy Reactions Criticality Noted Date [...] Description 10/11/2024 Post Discharge Follow-up [facility] Nursing Services [address] [place] [address] Amy Lara RN 10/09/2024 2:08 PM SOCIAL SERVICE MANAGER - 10/10/2024 4:35 PM SOCIAL SERVICE MANAGER Emergency [facility] Med Surg [address] [place] [address] Kalyn Vázquez, CERTIFIED MASTER SAFECRACKER, TRACTOR OPERATOR HELPER Chula Moore MD Chest pain Discharge Disposition: [...] ago and stopped vaping 3 yrs ago [facility] [employer] Answer Date Recorded In the past 12 months has [employer] electric, gas, oil, or water company threatened [...] week 10/09/2024 How often do you attend jainism or mormon serv ices? Never 10/09/2024 Do you belong to any clubs o r organizations such as jainism groups, unions, fraternal or athletic groups, or [...] medical care, and heating? Somewhat hard 10/09/2024 [facility] - Occupational Stress Questionnaire Answer Date Recorded [...] time in the past 12 m [facility], were you homeless or living in a care home (including now)? No 10/09/2024 Comments No Sex and Gender Information Value Date Recorded Sex Assigned at Not on file Legal Sex Female 2:06 PM SOCIAL SERVICE MANAGER Gender Identity Not on file Sexual Orientation Not on file Last Filed Vital Signs Vital Sign Reading Time Taken Comments Blood Pressure 156/97 10/10/2024 12:00 PM SOCIAL SERVICE MANAGER Pulse 67 10/10/2024 12:00 PM SOCIAL SERVICE MANAGER Temperature 36.8 C (98.2 F) 10/10/2024 12:00 PM SOCIAL SERVICE MANAGER Respiratory Rate 18 10/10/2024 12:00 PM SOCIAL SERVICE MANAGER Oxygen Saturation 99% 10/10/2024 12:00 PM SOCIAL SERVICE MANAGER Inhaled Oxygen Concentration - - Weight 80.3 kg (177 lb) 10/10/2024 8:58 AM SOCIAL SERVICE MANAGER Height 170.2 cm (5' 7 ) 10/10/2024 8:58 AM SOCIAL SERVICE MANAGER Body Mass Index 27.72 10/10/2024 8:58 AM SOCIAL SERVICE MANAGER Plan of Treatment Health Maintenance Due Date Last Done Comments Hepatitis C Virus (HCV) Screening 1960 Mammogram 1961 Pap Smear 1982 Cervical Cancer Screening (CCS) 1991 HPV/Cotest 1991 Colonoscopy 2006 Colorectal Cancer Screening 2006 Cologuard 2011 Immunochemical Fecal Occult Blood 2011 Pneumococcal Immunization (50+ years) (1 of [...] FRACTION Stat with Interpretation 10/10/2024 9:32 AM SOCIAL SERVICE MANAGER ADULT CV STRESS PHARMACOLOGIC W NUC MED Stat with Interpretation 10/10/2024 9:09 AM SOCIAL SERVICE MANAGER LIPID PANEL Routine 10/10/2024 5:53 AM SOCIAL SERVICE MANAGER BASIC METABOLIC PANEL W/ CALCIUM TOTAL Routine 10/10/2024 5:53 AM SOCIAL SERVICE MANAGER CBC WITH AUTO DIFFERENTIAL Routine 10/10/2024 5:52 AM SOCIAL SERVICE MANAGER COMPLETE BLOOD COUNT (CBC) WITH DIFF Routine 10/10/2024 5:52 AM SOCIAL SERVICE MANAGER TROPONIN I, HIGH SENSITIVITY (HSTRP) STAT 10/10/2024 12:24 AM SOCIAL SERVICE MANAGER RHYTHM STRIP 10/10/2024 12:00 AM SOCIAL SERVICE MANAGER RHYTHM STRIP 10/10/2024 12:00 AM SOCIAL SERVICE MANAGER RHYTHM STRIP 10/10/2024 12:00 AM SOCIAL SERVICE MANAGER C-REACTIVE PROTEIN (CRP) QUANT STAT 10/09/2024 3:15 PM SOCIAL SERVICE MANAGER TROPONIN I, HIGH SENSITIVITY (HSTRP) STAT 10/09/2024 3:15 PM SOCIAL SERVICE MANAGER XR CHEST SINGLE VIEW STAT 10/09/2024 2:48 PM SOCIAL SERVICE MANAGER CRITICAL CARE Routine 10/09/2024 2:30 PM SOCIAL SERVICE MANAGER D-DIMER STAT 10/09/2024 2:25 PM SOCIAL SERVICE MANAGER CBC WITH AUTO DIFFERENTIAL STAT 10/09/2024 2:23 PM SOCIAL SERVICE MANAGER B-TYPE NATRIURETIC PEPTIDE (BNP) STAT 10/09/2024 2:23 PM SOCIAL SERVICE MANAGER MAGNESIUM (MG) STAT 10/09/2024 2:23 PM SOCIAL SERVICE MANAGER TROPONIN I, HIGH SENSITIVITY (HSTRP) STAT 10/09/2024 2:23 PM SOCIAL SERVICE MANAGER CMP (COMPREHENSIVE METABOLIC PANEL) STAT 10/09/2024 2:23 PM SOCIAL SERVICE MANAGER COMPLETE BLOOD COUNT (CBC) WITH DIFF STAT 10/09/2024 2:23 PM SOCIAL SERVICE MANAGER EKG 12 LEAD STAT 10/09/2024 2:12 PM SOCIAL SERVICE MANAGER RHYTHM STRIP 10/09/2024 12:00 AM SOCIAL SERVICE MANAGER EKG SCAN 10/09/2024 12:00 AM SOCIAL SERVICE MANAGER from Last 3 Months Results * NM CARD MULTI SPECT WITH WALL MOTION AND EJECTION FRACTION (10/10/2024 9:32 AM SOCIAL SERVICE MANAGER) Anatomical Region Laterality Modality CARDIO N/A Nuclear Medicine 10/10/2024 10:3 3 AM SOCIAL SERVICE MANAGER Impressions 10/10/2024 10:36 AM SOCIAL SERVICE MANAGER IMPRESSION: Normal myocardial perfusion study. No scintigraphic evidence of myocardial ischemia. Normal left ventricular ejection fraction of greater than 75 % poststress. Normal wall motion. Narrative 10/10/2024 10:36 AM SOCIAL SERVICE MANAGER EXAM DESCRIPTION: NM CARD MULTI SPECT WITH [...] Baudilio Lee M.D. LB: SHIRA Report ID: [id number] Reading Location: [id number] Procedure Note Baudilio Lee MD - 10/10/2024 [...] Baudilio Lee M.D. LB: SHIRA Report ID: [id number] Reading Location: [place] [address] IMPRESSION: Normal myocardial perfusion study. No scintigraphic evidence of myocardial ischemia. Normal left ventricular ejection fraction of greater than 75 % poststress. Normal wall motion. Winter Wolf APRN, TRACTOR OPERATOR HELPER IMG NM CARDIAC NI OR DERABLES Final Result * ADULT CV STRESS PHARMACOLOGIC W NUC MED (10/10/2024 9:09 AM SOCIAL SERVICE MANAGER) Anatomical Region Laterality Modality CARDIO N/A Electrocardiogra phy Narrative 10/10/2024 1:20 PM SOCIAL SERVICE MANAGER Non-Imaging Stress Test Patient Name JUAN F GUERRERO Alla 1960 Patient ID (UPI) [id number] Indications: Chest pain. Study Date10/10/2024 Type of [...] - Lexiscan Protocol Peak HR: 106 bpm [id number] Peak BP: 140/88 mmHg Predicted HR: 157 [...] Weight 177 lbs. BMI 27.72 kg/m^2 Stress Braided Rug Maker Room 233 Nurse Jeremiah Handley RN Interpreting Boo Referring Physician Rey Physician Procedure Note Rey Haddad MD - 10/10/2024 Non-Imaging Stress Test Patient Name JUAN F Gold 1960 Patient ID (I) [id number] Indications: Chest pain. Study Date10/10/2024 Type of [...] - Lexiscan Protocol Peak HR: 106 bpm [id number] Peak BP: 140/88 mmHg Predicted HR: 157 [...] Weight 177 lbs. BMI 27.72 kg/m^2 Stress Braided Rug Maker Room 233 Nurse Jeremiah Handley RN Interpreting Haddad Referring Physician Rey Physician us Winter Wolf APRN, CNP IMG STRESS Rachel l Result * (ABNORMAL) Lipid Panel (10/10/2024 5:53 AM SOCIAL SERVICE MANAGER) CHOLESTEROL 223(H) <200 mg/dL 10/10/2024 6:21 AM SOCIAL SERVICE MANAGER [facility] TRIGLYCERIDES 60 <150 mg/dL 10/10/2024 6:21 AM SOCIAL SERVICE MANAGER [facility] HDL CHOLESTEROL 70 >40 mg/dL 6:21 AM SOCIAL SERVICE MANAGER [facility] LDL 141(H) <130 mg/dL 10/10/2024 6:21 AM SOCIAL SERVICE MANAGER [facility] VLDL 12 10 - 50 mg/dL 10/10/2024 6:21 AM SOCIAL SERVICE MANAGER [facility] CHOL/HDL RATIO 3.2 0.0 - 4.4 10/10/2024 6:21 AM SOCIAL SERVICE MANAGER [facility] NON-HDL CHOLESTEROL 153(H) <130 mg/dL 10/10/2024 6:21 AM SOCIAL SERVICE MANAGER [facility] Blood Venipuncture / Unknown 10/10/2024 5:53 AM SOCIAL SERVICE MANAGER 10/10/2024 5:53 AM SOCIAL SERVICE MANAGER us Radha Diaz APRN, CNP CHEMISTRY ORDERABLES Rachel l Result [facility] [address] [place] [address] * (ABNORMAL) BMP with Ca, Total (10/10/2024 5:53 AM SOCIAL SERVICE MANAGER) SODIUM 142 136 - 145 mmol/L 10/10/2024 6:21 AM SOCIAL SERVICE MANAGER [facility] POTASSIUM 4.0 3.5 - 5.1 mmol/L 10/10/2024 6:21 AM [facility] CHLORIDE 111(H) 98 - 107 mmol/L 10/10/2024 6:21 AM [facility] CO2, VENOUS 23 22 - 30 mmol/L 10/10/2024 6:21 AM [facility] ANION GAP 12.0 <18.0 mmol/L 10/10/2024 6:21 AM [facility] GLUCOSE 93 70 - 99 mg/dL 10/10/2024 6:21 AM [facility] BUN 13 10 - 20 mg/dL 10/10/2024 6:21 AM [facility] CREATININE, BLOOD 0.78 0.60 - 1.00 mg/dL 10/10/2024 6:21 AM [facility] BUN/CREATININE RATIO 17 12 - 20 ratio 10/10/2024 6:21 AM [facility] CALCIUM 8.9 8.7 - 10.5 mg/dL 10/10/2024 6:21 AM [facility] GFR, ESTIMATED >60 >=60 10/10/2024 6:21 AM [facility] Comment: Creatinine Clearance is the preferred criteria for selecting drug dose adjustments in renally impaired patients. The GFR is provided as additional pertinent clinical information. GFR is reported in mL/min/1.73 sq m. Calculation based on the Chronic Kidney Disease Epidemiology Collaboration (CKD- EPI) equation refit without adjustment for race. GFR, EST. >60 >=60 025 6:21 AM [facility] GFR, EST. NONAFRICAN >60 >=60 10/10/2024 6:21 AM [facility] Blood Venipuncture / Unknown 10/10/2024 5:53 AM SOCIAL SERVICE MANAGER 10/10/2024 5:53 AM SOCIAL SERVICE MANAGER us Radha Diaz CERTIFIED MASTER SAFECRACKER, TRACTOR OPERATOR HELPER CHEMISTRY ORDERABLES Rachel l Result [facility] [address] [place] [address] * (ABNORMAL) CBC with Auto Differential (10/10/2024 5:52 AM [facility]) Only the most recent of2 resultswithin the time period is included. WBC 6.59 4.00 - 12.00 10(3)/mcL 10/10/2024 6:04 AM [facility] RBC 4.86 3.80 - 5.30 10(6)/mcL 10/10/2024 6:04 AM [facility] HEMOGLOBIN (HGB) 14.2 12.0 - 15.8 g/dL 10/10/2024 6:04 AM [facility] HEMATOCRIT (HCT) 42.9 36.0 - 47.0 % 10/10/2024 6:04 AM [facility] MCV 88.3 82.0 - 96.0 fL 10/10/2024 6:04 AM [facility] MCH 29.2 26.0 - 34.0 pg 10/10/2024 6:04 AM [facility] MCHC 33.1 31.0 - 36.0 g/dL 10/10/2024 6:04 AM [facility] PLATELET COUNT 290 140 - 440 10(3)/mcL 10/10/2024 6:04 AM [facility] RDW 14.0 11.8 - 15.5 % 10/10/2024 6:04 AM [facility] MPV 9.8 9.7 - 12.4 fL 10/10/2024 6:04 AM [facility] NEUTROPHILS 58.4 47.0 - 73.0 % 10/10/2024 6:04 AM [facility] LYMPHOCYTES 28.7 18.0 - 42.0 % 10/10/2024 6:04 AM [facility] MONOCYTES 8.8 4.0 - 12.0 % 10/10/2024 6:04 AM SOCIAL SERVICE MANAGER [facility] EOSINOPHILS 2.9 0.0 - 5.0 % 10/10/2024 6:04 AM [facility] BASOPHILS 1.2(H) 0.0 - 1.0 % 10/10/2024 6:04 AM [facility] ABSOLUTE NEUTROPHILS 3.85 1.60 - 7.70 10(3)/[facility] 10/10/2024 6:04 AM [facility] ABSOLUTE LYMPHOCYTES 1.89 1.30 - 3.20 10(3)/[facility] 10/10/2024 6:04 AM [facility] ABSOLUTE MONOCYTES 0.58 0.20 - 1.00 10(3)/[facility] 10/10/2024 6:04 AM [facility] ABSOLUTE EOSINOPHIL 0.19 0.00 - 0.40 10(3)/[facility] 10/10/2024 6:04 AM [facility] ABSOLUTE BASOPHILS 0.08 0.00 - 0.10 10(3)/[facility] 10/10/2024 6:04 AM [facility] NRBC PER 100 WBC 0 10/10/19 6:04 AM [facility] Blood Venipuncture / Unknown 10/10/2024 5:52 AM SOCIAL SERVICE MANAGER 10/10/2024 5:52 AM [facility] us Radha Diaz CERTIFIED MASTER SAFECRACKER, TRACTOR OPERATOR HELPER HEMATOLOGY ORDERABLES Fin al Result [facility] [address] [place] [address] * TROPONIN I, HIGH SENSITIVITY (HSTRP) (10/10/2024 12:24 AM SOCIAL SERVICE MANAGER) Only the most recent of3 resultswithin the time period is included. Pathologist [facility] TROPONIN I, HIGH SENSITIVITY- JACQUES 3 <=14 ng/L 10/10/2024 12:50 AM [facility] Comment: High-sensitivity troponin I results are reported in ng/L making the result appear to be 1,000 times higher than the contemporary troponin I value which is reported in ng/ml. Results from [facility]. Blood Venipuncture / Unknown 10/10/2024 12:24 AM SOCIAL SERVICE MANAGER 10/10/2024 12:26 AM SOCIAL SERVICE MANAGER us Radha Diaz CERTIFIED MASTER SAFECRACKER, TRACTOR OPERATOR HELPER CHEMISTRY ORDERABLES Rachel l Result Performing Organization Address City/[facility]/ZIP Co de Phone Number [facility] [address] [place] [address] * RHYTHM STRIP (10/10/2024 12:00 AM SOCIAL SERVICE MANAGER) Only the most recent of4 resultswithin the time period is included. 10/10/2024 us Provider Scan IMG ECG ORDERABLES Final Result Performing Organization Address City/[facility] [[email or web address]] Co de Phone Number RESULTING AGENCY * C-Reactive Protein (CRP) Quant (10/09/2024 3:15 PM SOCIAL SERVICE MANAGER) C-REACTIVE PROTEIN 0.31 <0.50 mg/dL 10/09/2024 5:10 PM SOCIAL SERVICE MANAGER [facility] Blood Venipuncture / Unknown 10/09/2024 3:15 PM SOCIAL SERVICE MANAGER 10/09/2024 3:39 PM SOCIAL SERVICE MANAGER us Chula Barr MD CHEMISTRY ORDERABLES Final Re sult Performing Organization Address City/[facility] [[email or web address]] Co de Phone Number [facility] [address] [place] [address] * XR CHEST SINGLE VIEW (10/09/2024 2:48 PM SOCIAL SERVICE MANAGER) Anatomical Region Laterality Modality Chest N/A Digital Radiogra phy 10/09/2024 3:01 PM SOCIAL SERVICE MANAGER Impressions 10/09/2024 3:03 PM SOCIAL SERVICE MANAGER IMPRESSION: Mild patchy left basilar airspace opacities, which is likely related to subsegmental atelectasis and less likely developing airspace disease. Narrative 10/09/2024 3:03 PM SOCIAL SERVICE MANAGER EXAM DESCRIPTION: XR CHEST SINGLE VIEW REASON [...] Sarthak Reza D.O. PS: PS Report ID: [id number] Reading Location: [id number] Procedure Note Sarthak Reza DO - 10/09/2024 [...] Sarthak Reza D.O. PS: PS Report ID: [id number] Reading Location: [id number] IMPRESSION: Mild patchy left basilar airspace opacities, which is likely related to subsegmental atelectasis and less likely developing airspace disease. Kalyn Vázquez APRN, TRACTOR OPERATOR HELPER IMG DIAGNOSTIC ORDERA BLES Final Result * Critical Care (10/09/2024 2:30 PM SOCIAL SERVICE MANAGER) Narrative Nadeem Childress MD - 10/09/2024 2:30 PM SOCIAL SERVICE MANAGER Kalyn Vázquez APRN, CNP 10/09/2024 4:34 PM Critical Care [...] specialty: no Care discussed with: admitting provider us Kalyn Vázquez APRN, CNP PROCEDURE/MINOR SURGI MADELEINE ORDERABLES Final Result * D-DIMER [id number] (10/09/2024 2:25 PM SOCIAL SERVICE MANAGER) Pathologist [facility] D DIMER <=0.27 <0.50 mcg/mL FEU 10/09/2024 2:50 PM SOCIAL SERVICE MANAGER [facility] Blood Venipuncture / Unknown 10/09/2024 2:25 PM SOCIAL SERVICE MANAGER 10/09/2024 2:32 PM SOCIAL SERVICE MANAGER Narrative [facility] - 10/09/2024 2:50 PM SOCIAL SERVICE MANAGER The FDA has approved this method to exclude the diagnosis of DVT and/or PE at the cutoff value of <0.50 mcg/mL FEU. Kalyn Vázquez APRN, CNP HEMATOLOGY ORDERABLES Final Result [facility] [address] [place] [address] * Magnesium (Mg) [id number] (10/09/2024 2:23 PM SOCIAL SERVICE MANAGER) Pathologist [facility] MAGNESIUM 2.2 1.6 - 2.6 mg/dL 10/09/2024 2:52 PM SOCIAL SERVICE MANAGER [facility] Blood Venipuncture / Unknown 10/09/2024 2:23 PM SOCIAL SERVICE MANAGER 10/09/2024 2:32 PM SOCIAL SERVICE MANAGER Kalyn Vázquez CERTIFIED MASTER SAFECRACKER, TRACTOR OPERATOR HELPER CHEMISTRY ORDERABLES Final Result [facility] [address] [place] [address] * (ABNORMAL) Comprehensive Metabolic Panel (Cmp) [id number] (10/09/2024 2:23 PM SOCIAL SERVICE MANAGER) Pathologist [facility] SODIUM 142 136 - 145 mmol/L 10/09/2024 2:52 PM SOCIAL SERVICE MANAGER [facility] POTASSIUM 3.7 3.5 - 5.1 mmol/L 10/09/2024 2:52 PM [facility] CHLORIDE 107 98 - 107 mmol/L 10/09/2024 2:52 PM [facility] CO2, VENOUS 26 22 - 30 mmol/L 10/09/2024 2:52 PM [facility] ANION GAP 12.7 <18.0 mmol/L 10/09/2024 2:52 PM [facility] GLUCOSE 109(H) 70 - 99 mg/dL 10/09/2024 2:52 PM [facility] BUN 15 10 - 20 mg/dL 10/09/2024 2:52 PM [facility] CREATININE, BLOOD 0.94 0.60 - 1.00 mg/dL 10/09/2024 2:52 PM [facility] BUN/CREATININE RATIO 16 12 - 20 ratio 10/09/2024 2:52 PM [facility] TOTAL PROTEIN 8.3(H) 6.0 - 8.0 g/dL 10/09/2024 2:52 PM [facility] ALBUMIN 4.3 3.5 - 5.0 g/dL 10/09/2024 2:52 PM SOCIAL SERVICE MANAGER [facility] A/G RATIO 1.1 1.0 - 2.2 10/09/2024 2:52 PM SOCIAL SERVICE MANAGER [facility] CALCIUM 9.8 8.7 - 10.5 mg/dL 10/09/2024 2:52 PM SOCIAL SERVICE MANAGER [facility] T BILI 0.4 0.2 - 1.2 mg/dL 10/09/2024 2:52 PM SOCIAL SERVICE MANAGER [facility] SGOT (AST) 22 6 - 42 U/L 10/09/2024 2:52 PM SOCIAL SERVICE MANAGER [facility] SGPT (ALT) 18 6 - 55 U/L 10/09/2024 2:52 PM SOCIAL SERVICE MANAGER [facility] ALKALINE PHOSPHATASE 114 40 - 150 U/L 10/09/2024 2:52 PM SOCIAL SERVICE MANAGER [facility] GFR, ESTIMATED >60 >=60 10/09/2024 2:52 PM SOCIAL SERVICE MANAGER [facility] Comment: Creatinine Clearance is the preferred criteria for selecting drug dose adjustments in renally impaired patients. The GFR is provided as additional pertinent clinical information. GFR is reported in mL/min/1.73 sq m. Calculation based on the Chronic Kidney Disease Epidemiology Collaboration (CKD- EPI) equation refit without adjustment for race. GFR, EST. >60 >=60 025 2:52 PM SOCIAL SERVICE MANAGER [facility] GFR, EST. NONAFRICAN 60 >=60 10/09/2024 2:52 PM SOCIAL SERVICE MANAGER [facility] Blood Venipuncture / Unknown 10/09/2024 2:23 PM SOCIAL SERVICE MANAGER 10/09/2024 2:32 PM SOCIAL SERVICE MANAGER us Kalyn Vázquez APRN, TRACTOR OPERATOR HELPER CHEMISTRY ORDERABLES Final Result [facility] [address] [place] [address] * B-Type Natriuretic Peptide (BNP) (10/09/2024 2:23 PM SOCIAL SERVICE MANAGER) B TYPE NATRIURETIC PEPTIDE 29 <100 pg/mL 10/09/2024 5:41 PM SOCIAL SERVICE MANAGER [facility] Blood Venipuncture / Unknown 10/09/2024 2:23 PM SOCIAL SERVICE MANAGER 10/09/2024 2:32 PM SOCIAL SERVICE MANAGER us Chula Barr MD CHEMISTRY ORDERABLES Final Re sult Performing Organization Address City/[facility]/ZIP Co de Phone Number [facility] [address] [place] [address] * EKG 12 LEAD (10/09/2024 2:12 PM SOCIAL SERVICE MANAGER) Ventricular Rate 71 BPM EXTERNAL EKG Atrial Rate 71 BPM EXTERNAL EKG P-R Interval 138 ms EXTERNAL EKG QRS Duration 80 ms EXTERNAL EKG Q-T Duration 340 ms EXTERNAL EKG QTC CALCULATION 369 ms EXTERNAL EKG P [place] 49 degrees EXTERNAL EKG R [place] 18 degrees EXTERNAL EKG T [place] 47 degrees EXTERNAL EKG 10/09/2024 2:12 PM SOCIAL SERVICE MANAGER Impressions EXTERNAL EKG - 10/10/2024 3:03 PM SOCIAL SERVICE MANAGER Normal sinus rhythm Nonspecific ST abnormality Abnormal ECG No previous ECGs available Confirmed by Pilo Wolf ([id number]) on 10/10/2024 3:03:22 PM Narrative Procedure Note Pilo Wolf MD - 10/10/2024 IMPRESSION: Normal sinus rhythm Nonspecific ST abnormality Abnormal ECG No previous ECGs available Confirmed by Pilo Wolf ([id number]) on 10/10/2024 3:03:22 PM us Nadeem Childress MD IMG ECG ORDERABLES Final R esult Performing Organization Address City/[facility]/ZIP Co de Phone Number EXTERNAL EKG * EKG SCAN (10/09/2024 12:00 AM SOCIAL SERVICE MANAGER) 10/09/2024 us Provider Scan IMG ECG ORDERABLES Final Result RESULTING AGENCY from Last 3 Months Insurance MEDICAID [employer] [facility] Advance Directives * Full Code (Latest Code Status on File) Date Activated Date Inactivated Comments 10/09/2024 10:00 PM CPR-Full Parul tment: FULL ARREST: Attempt Resuscitation/CPR wit intubation and mechanical ventilation. PRE-ARREST: Use entire range of life support measures to stabilize the patient. Care Teams Singing Telegram Performer Relationship Specialty Start Date End Date Estuardo Plunkett MD [address] [place] [address] PCP - General Internal Medicine 10/09/24
== END 2024-11-07 15:24 | disposition home or self-care (01) ==
PROVIDERS: PCP Internal Medicine; Visit Provider Internal Medicine
DX: R06.00 Dyspnea, unspecified (principal); R07.89 Other chest pain
CPT/HCPCS: 93306

== ENCOUNTER 2024-12-22 09:45 | Outpatient (CLI) | payer OTHER, SELFPAY ==
[2024-12-22 10:08] LABS: Hematocrit 44.2 % (35.0-49.0); Hemoglobin 13.9 g/dL (12.0-15.0); Mean Corpuscular HGB Conc 31.4 g/dL (32-36); Mean Corpuscular Hemoglobin 28.3 pg (27.0-31.0); Mean Corpuscular Volume 89.8 fL (78.0-102.0); Mean Platelet Volume 8.9 fl (9.2-11.8); Platelet Count Result 313 K/mm3 (150-420); Red Blood Count 4.92 M/mm3 (4.20-5.40); Red Cell Distribution Width 13.6 % (11.6-14.4); White Blood Count 6.2 K/mm3 (4.8-10.8)
[2024-12-22 10:09] LABS: Add Urine Microscopic? NO; Appearance Urine Clear (Clear); Bilirubin Urine Negative (Negative); Blood Urine Trace-intact (Negative); Color Urine Yellow (Yellow); Glucose Urine UA Negative (Negative); Ketones Urine Negative (Negative); Leukocyte Esterase Ur Negative (Negative); Nitrate Urine Negative (Negative); Protein Urine Negative (Negative); Specific Grav Ur 1.025 (1.010-1.020); Urobilinogen Urine 0.2 mg/dL (0.2-1.0)
[2024-12-22 10:17] LABS: RBC Urine 0-2 /hpf (0-2); Squamous Epithelial Cell Urine Few /hpf (Few); WBC Urine None seen /hpf (0-3)
[2024-12-22 10:18] LABS: Bacteria Urine Trace /hpf; Mucus Urine Present /lpf
--- OUTSIDE RECORDS SUMMARY | 2024-12-22 10:19 | XMS_ITS | Clinical Summary ---
Author Organization [facility] Address [address] [place] [address] Phone Care Team Providers Care Rn Invasive Name Role Phone Estuardo Plunkett MD Primary Care Provider [phone] Allergies Active Allergy Reactions Criticality Noted Date [...] Description 10/11/2024 Post Discharge Follow-up [facility] [address] [place] [address] Amy Lara RN 10/09/2024 2:08 PM ULTRASONIC CLEANER - 10/10/2024 4:35 PM ULTRASONIC CLEANER Emergency [facility] [address] [place] [address] Kalyn Vázquez, LATEX THREAD MACHINE OPERATOR, VICE PRESIDENT SUPPLY CHAIN Chula Moore MD Chest pain Discharge Disposition: [...] ago and stopped vaping 3 yrs ago [facility] [employer] Answer Date Recorded In the past 12 months has [employer] electric, gas, oil, or water company threatened [...] week 10/09/2024 How often do you attend yarsani or yazidism serv ices? Never 10/09/2024 Do you belong to any clubs o r organizations such as yarsani groups, unions, fraternal or athletic groups, or [...] medical care, and heating? Somewhat hard 10/09/2024 [facility] - Occupational Stress Questionnaire [...] any time in the past 12 m [facility], were you homeless or living in a residential (including now)? No 10/09/2024 Comments No Sex and Gender Information Value Date Recorded Sex Assigned at Not on file Legal Sex Female 2:06 PM ULTRASONIC CLEANER Gender Identity Not on file Sexual Orientation Not on file Last Filed Vital Signs Vital Sign Reading Time Taken Comments Blood Pressure 156/97 10/10/2024 12:00 PM ULTRASONIC CLEANER Pulse 67 10/10/2024 12:00 PM ULTRASONIC CLEANER Temperature 36.8 C (98.2 F) 10/10/2024 12:00 PM ULTRASONIC CLEANER Respiratory Rate 18 10/10/2024 12:00 PM ULTRASONIC CLEANER Oxygen Saturation 99% 10/10/2024 12:00 PM ULTRASONIC CLEANER Inhaled Oxygen Concentration - - Weight 80.3 kg (177 lb) 10/10/2024 8:58 AM ULTRASONIC CLEANER Height 170.2 cm (5' 7 ) 10/10/2024 8:58 AM ULTRASONIC CLEANER Body Mass Index 27.72 10/10/2024 8:58 AM ULTRASONIC CLEANER Plan of Treatment Health Maintenance Due Date [...] FRACTION Stat with Interpretation 10/10/2024 9:32 AM ULTRASONIC CLEANER ADULT CV STRESS PHARMACOLOGIC W NUC MED Stat with Interpretation 10/10/2024 9:09 AM ULTRASONIC CLEANER LIPID PANEL Routine 10/10/2024 5:53 AM ULTRASONIC CLEANER BASIC METABOLIC PANEL W/ CALCIUM TOTAL Routine 10/10/2024 5:53 AM ULTRASONIC CLEANER CBC WITH AUTO DIFFERENTIAL Routine 10/10/2024 5:52 AM ULTRASONIC CLEANER COMPLETE BLOOD COUNT (CBC) WITH DIFF Routine 10/10/2024 5:52 AM ULTRASONIC CLEANER TROPONIN I, HIGH SENSITIVITY (HSTRP) STAT 10/10/2024 12:24 AM ULTRASONIC CLEANER RHYTHM STRIP 10/10/2024 12:00 AM ULTRASONIC CLEANER RHYTHM STRIP 10/10/2024 12:00 AM ULTRASONIC CLEANER RHYTHM STRIP 10/10/2024 12:00 AM ULTRASONIC CLEANER C-REACTIVE PROTEIN (CRP) QUANT STAT 10/09/2024 3:15 PM ULTRASONIC CLEANER TROPONIN I, HIGH SENSITIVITY (HSTRP) STAT 10/09/2024 3:15 PM ULTRASONIC CLEANER XR CHEST SINGLE VIEW STAT 10/09/2024 2:48 PM ULTRASONIC CLEANER CRITICAL CARE Routine 10/09/2024 2:30 PM ULTRASONIC CLEANER D-DIMER STAT 10/09/2024 2:25 PM ULTRASONIC CLEANER CBC WITH AUTO DIFFERENTIAL STAT 10/09/2024 2:23 PM ULTRASONIC CLEANER B-TYPE NATRIURETIC PEPTIDE (BNP) STAT 10/09/2024 2:23 PM ULTRASONIC CLEANER MAGNESIUM (MG) STAT 10/09/2024 2:23 PM ULTRASONIC CLEANER TROPONIN I, HIGH SENSITIVITY (HSTRP) STAT 10/09/2024 2:23 PM ULTRASONIC CLEANER CMP (COMPREHENSIVE METABOLIC PANEL) STAT 10/09/2024 2:23 PM ULTRASONIC CLEANER COMPLETE BLOOD COUNT (CBC) WITH DIFF STAT 10/09/2024 2:23 PM ULTRASONIC CLEANER EKG 12 LEAD STAT 10/09/2024 2:12 PM ULTRASONIC CLEANER RHYTHM STRIP 10/09/2024 12:00 AM ULTRASONIC CLEANER EKG SCAN 10/09/2024 12:00 AM ULTRASONIC CLEANER from Last 3 Months Results * NM CARD MULTI SPECT WITH WALL MOTION AND EJECTION FRACTION (10/10/2024 9:32 AM ULTRASONIC CLEANER) Anatomical Region Laterality Modality CARDIO N/A Nuclear Medicine 10/10/2024 10:3 3 AM ULTRASONIC CLEANER Impressions 10/10/2024 10:36 AM ULTRASONIC CLEANER IMPRESSION: Normal myocardial perfusion study. No scintigraphic evidence of myocardial ischemia. Normal left ventricular ejection fraction of greater than 75 % poststress. Normal wall motion. Narrative 10/10/2024 10:36 AM ULTRASONIC CLEANER EXAM DESCRIPTION: NM CARD MULTI SPECT WITH [...] Baudilio Lee M.D. LB: SHIRA Report ID: [id number] Reading Location: [id number] Procedure Note Baudilio Lee MD - 10/10/2024 [...] Baudilio Lee M.D. LB: SHIRA Report ID: [id number] Reading Location: [place] [address] IMPRESSION: Normal myocardial perfusion study. No scintigraphic evidence of myocardial ischemia. Normal left ventricular ejection fraction of greater than 75 % poststress. Normal wall motion. Winter Wolf APRN, VICE PRESIDENT SUPPLY CHAIN IMG NM CARDIAC NI OR DERABLES Final Result * ADULT CV STRESS PHARMACOLOGIC W NUC MED (10/10/2024 9:09 AM ULTRASONIC CLEANER) Anatomical Region Laterality Modality CARDIO N/A Electrocardiogra phy Narrative 10/10/2024 1:20 PM ULTRASONIC CLEANER Non-Imaging Stress Test Patient Name JUAN F GUERRERO Alla 1960 Patient ID (UPI) [id number] Indications: Chest pain. Study Date10/10/2024 Type of [...] - Lexiscan Protocol Peak HR: 106 bpm [id number] Peak BP: 140/88 mmHg Predicted HR: 157 [...] Weight 177 lbs. BMI 27.72 kg/m^2 Stress Foil Operator Room 233 Nurse Jeremiah Handley RN Interpreting Boo Referring Physician Rey Physician Procedure Note Rey Haddad MD - 10/10/2024 Non-Imaging Stress Test Patient Name JUAN F Gold 1960 Patient ID (I) [id number] Indications: Chest pain. Study Date10/10/2024 Type of [...] - Lexiscan Protocol Peak HR: 106 bpm [id number] Peak BP: 140/88 mmHg Predicted HR: 157 [...] Weight 177 lbs. BMI 27.72 kg/m^2 Stress Foil Operator Room 233 Nurse Jeremiah Handley RN Interpreting Haddad Referring Physician Rey Physician us Winter Wolf APRN, CNP IMG STRESS Rachel l Result * (ABNORMAL) Lipid Panel (10/10/2024 5:53 AM ULTRASONIC CLEANER) CHOLESTEROL 223(H) <200 mg/dL 10/10/2024 6:21 AM ULTRASONIC CLEANER [facility] TRIGLYCERIDES 60 <150 mg/dL 10/10/2024 6:21 AM ULTRASONIC CLEANER [facility] HDL CHOLESTEROL 70 >40 mg/dL 6:21 AM ULTRASONIC CLEANER [facility] LDL 141(H) <130 mg/dL 10/10/2024 6:21 AM ULTRASONIC CLEANER [facility] VLDL 12 10 - 50 mg/dL 10/10/2024 6:21 AM ULTRASONIC CLEANER [facility] CHOL/HDL RATIO 3.2 0.0 - 4.4 10/10/2024 6:21 AM ULTRASONIC CLEANER [facility] NON-HDL CHOLESTEROL 153(H) <130 mg/dL 10/10/2024 6:21 AM ULTRASONIC CLEANER [facility] Blood Venipuncture / Unknown 10/10/2024 5:53 AM ULTRASONIC CLEANER 10/10/2024 5:53 AM ULTRASONIC CLEANER us Radha Diaz APRN, CNP CHEMISTRY ORDERABLES Rachel l Result [facility] [address] [place] [address] * (ABNORMAL) BMP with Ca, Total (10/10/2024 5:53 AM ULTRASONIC CLEANER) SODIUM 142 136 - 145 mmol/L 10/10/2024 6:21 AM ULTRASONIC CLEANER [facility] POTASSIUM 4.0 3.5 - 5.1 mmol/L 10/10/2024 6:21 AM [facility] CHLORIDE 111(H) 98 - 107 mmol/L 10/10/2024 6:21 AM [facility] CO2, VENOUS 23 22 - 30 mmol/L 10/10/2024 6:21 AM [facility] ANION GAP 12.0 <18.0 mmol/L 10/10/2024 6:21 AM [facility] GLUCOSE 93 70 - 99 mg/dL 10/10/2024 6:21 AM [facility] BUN 13 10 - 20 mg/dL 10/10/2024 6:21 AM [facility] CREATININE, BLOOD 0.78 0.60 - 1.00 mg/dL 10/10/2024 6:21 AM [facility] BUN/CREATININE RATIO 17 12 - 20 ratio 10/10/2024 6:21 AM [facility] CALCIUM 8.9 8.7 - 10.5 mg/dL 10/10/2024 6:21 AM [facility] GFR, ESTIMATED >60 >=60 10/10/2024 6:21 AM [facility] Comment: Creatinine Clearance is the preferred criteria for selecting drug dose adjustments in renally impaired patients. The GFR is provided as additional pertinent clinical information. GFR is reported in mL/min/1.73 sq m. Calculation based on the Chronic Kidney Disease Epidemiology Collaboration (CKD- EPI) equation refit without adjustment for race. GFR, EST. >60 >=60 025 6:21 AM [facility] GFR, EST. NONAFRICAN >60 >=60 10/10/2024 6:21 AM [facility] Blood Venipuncture / Unknown 10/10/2024 5:53 AM ULTRASONIC CLEANER 10/10/2024 5:53 AM ULTRASONIC CLEANER us Radha Diaz LATEX THREAD MACHINE OPERATOR, VICE PRESIDENT SUPPLY CHAIN CHEMISTRY ORDERABLES Rachel l Result [facility] [address] [place] [address] * (ABNORMAL) CBC with Auto Differential (10/10/2024 5:52 AM RUST) Only the most recent of2 resultswithin the time period is included. WBC 6.59 4.00 - 12.00 10(3)/mcL 10/10/2024 6:04 AM [facility] RBC 4.86 3.80 - 5.30 10(6)/mcL 10/10/2024 6:04 AM [facility] HEMOGLOBIN (HGB) 14.2 12.0 - 15.8 g/dL 10/10/2024 6:04 AM [facility] HEMATOCRIT (HCT) 42.9 36.0 - 47.0 % 10/10/2024 6:04 AM [facility] MCV 88.3 82.0 - 96.0 fL 10/10/2024 6:04 AM [facility] MCH 29.2 26.0 - 34.0 pg 10/10/2024 6:04 AM [facility] MCHC 33.1 31.0 - 36.0 g/dL 10/10/2024 6:04 AM [facility] PLATELET COUNT 290 140 - 440 10(3)/mcL 10/10/2024 6:04 AM [facility] RDW 14.0 11.8 - 15.5 % 10/10/2024 6:04 AM [facility] MPV 9.8 9.7 - 12.4 fL 10/10/2024 6:04 AM [facility] NEUTROPHILS 58.4 47.0 - 73.0 % 10/10/2024 6:04 AM [facility] LYMPHOCYTES 28.7 18.0 - 42.0 % 10/10/2024 6:04 AM [facility] MONOCYTES 8.8 4.0 - 12.0 % 10/10/2024 6:04 AM ULTRASONIC CLEANER [facility] EOSINOPHILS 2.9 0.0 - 5.0 % 10/10/2024 6:04 AM [facility] BASOPHILS 1.2(H) 0.0 - 1.0 % 10/10/2024 6:04 AM [facility] ABSOLUTE NEUTROPHILS 3.85 1.60 - 7.70 10(3)/[facility] 10/10/2024 6:04 AM [facility] ABSOLUTE LYMPHOCYTES 1.89 1.30 - 3.20 10(3)/[facility] 10/10/2024 6:04 AM [facility] ABSOLUTE MONOCYTES 0.58 0.20 - 1.00 10(3)/[facility] 10/10/2024 6:04 AM [facility] ABSOLUTE EOSINOPHIL 0.19 0.00 - 0.40 10(3)/[facility] 10/10/2024 6:04 AM [facility] ABSOLUTE BASOPHILS 0.08 0.00 - 0.10 10(3)/[facility] 10/10/2024 6:04 AM [facility] NRBC PER 100 WBC 0 10/10/19 6:04 AM [facility] Blood Venipuncture / Unknown 10/10/2024 5:52 AM ULTRASONIC CLEANER 10/10/2024 5:52 AM RUST us Radha Diaz LATEX THREAD MACHINE OPERATOR, VICE PRESIDENT SUPPLY CHAIN HEMATOLOGY ORDERABLES Fin al Result [facility] [address] [place] [address] * TROPONIN I, HIGH SENSITIVITY (HSTRP) (10/10/2024 12:24 AM ULTRASONIC CLEANER) Only the most recent of3 resultswithin the time period is included. Pathologist [facility] TROPONIN I, HIGH SENSITIVITY- JACQUES 3 <=14 ng/L 10/10/2024 12:50 AM [facility] Comment: High-sensitivity troponin I results are reported in ng/L making the result appear to be 1,000 times higher than the contemporary troponin I value which is reported in ng/ml. Results from [facility]. Blood Venipuncture / Unknown 10/10/2024 12:24 AM ULTRASONIC CLEANER 10/10/2024 12:26 AM ULTRASONIC CLEANER us Radha Diaz LATEX THREAD MACHINE OPERATOR, VICE PRESIDENT SUPPLY CHAIN CHEMISTRY ORDERABLES Rachel l Result Performing Organization Address City/[facility]/ZIP Co de Phone Number [facility] [address] [place] [address] * RHYTHM STRIP (10/10/2024 12:00 AM ULTRASONIC CLEANER) Only the most recent of4 resultswithin the time period is included. 10/10/2024 us Provider Scan IMG ECG ORDERABLES Final Result Performing Organization Address City/[facility] Co de Phone Number RESULTING AGENCY * C-Reactive Protein (CRP) Quant (10/09/2024 3:15 PM ULTRASONIC CLEANER) C-REACTIVE PROTEIN 0.31 <0.50 mg/dL 10/09/2024 5:10 PM ULTRASONIC CLEANER [facility] Blood Venipuncture / Unknown 10/09/2024 3:15 PM ULTRASONIC CLEANER 10/09/2024 3:39 PM ULTRASONIC CLEANER us Chula Barr MD CHEMISTRY ORDERABLES Final Re sult Performing Organization Address City/[facility] Co de Phone Number [facility] [address] [place] [address] * XR CHEST SINGLE VIEW (10/09/2024 2:48 PM ULTRASONIC CLEANER) Anatomical Region Laterality Modality Chest N/A Digital Radiogra phy 10/09/2024 3:01 PM ULTRASONIC CLEANER Impressions 10/09/2024 3:03 PM ULTRASONIC CLEANER IMPRESSION: Mild patchy left basilar airspace opacities, which is likely related to subsegmental atelectasis and less likely developing airspace disease. Narrative 10/09/2024 3:03 PM ULTRASONIC CLEANER EXAM DESCRIPTION: XR CHEST SINGLE VIEW REASON [...] Sarthak Reza D.O. PS: PS Report ID: [id number] Reading Location: [id number] Procedure Note Sarthak Reza DO - 10/09/2024 [...] Sarthak Reza D.O. PS: PS Report ID: [id number] Reading Location: [id number] IMPRESSION: Mild patchy left basilar airspace opacities, which is likely related to subsegmental atelectasis and less likely developing airspace disease. Kalyn Vázquez APRN, VICE PRESIDENT SUPPLY CHAIN IMG DIAGNOSTIC ORDERA BLES Final Result * Critical Care (10/09/2024 2:30 PM ULTRASONIC CLEANER) Narrative Nadeem Childress MD - 10/09/2024 2:30 PM ULTRASONIC CLEANER Kalyn Vázquez APRN, CNP 10/09/2024 4:34 PM [...] SURGI MADELEINE ORDERABLES Final Result * D-DIMER [id number] (10/09/2024 2:25 PM ULTRASONIC CLEANER) Pathologist [facility] D DIMER <=0.27 <0.50 mcg/mL FEU 10/09/2024 2:50 PM ULTRASONIC CLEANER [facility] Blood Venipuncture / Unknown 10/09/2024 2:25 PM ULTRASONIC CLEANER 10/09/2024 2:32 PM ULTRASONIC CLEANER Narrative [facility] - 10/09/2024 2:50 PM ULTRASONIC CLEANER The FDA has approved this method to exclude the diagnosis of DVT and/or PE at the cutoff value of <0.50 mcg/mL FEU. Kalyn Vázquez APRN, CNP HEMATOLOGY ORDERABLES Final Result [facility] [address] [place] [address] * Magnesium (Mg) [id number] (10/09/2024 2:23 PM ULTRASONIC CLEANER) Pathologist [facility] MAGNESIUM 2.2 1.6 - 2.6 mg/dL 10/09/2024 2:52 PM ULTRASONIC CLEANER [facility] Blood Venipuncture / Unknown 10/09/2024 2:23 PM ULTRASONIC CLEANER 10/09/2024 2:32 PM ULTRASONIC CLEANER Kalyn Vázquez LATEX THREAD MACHINE OPERATOR, VICE PRESIDENT SUPPLY CHAIN CHEMISTRY ORDERABLES Final Result [facility] [address] [place] [address] * (ABNORMAL) Comprehensive Metabolic Panel (Cmp) [id number] (10/09/2024 2:23 PM ULTRASONIC CLEANER) Pathologist [facility] SODIUM 142 136 - 145 mmol/L 10/09/2024 2:52 PM ULTRASONIC CLEANER [facility] POTASSIUM 3.7 3.5 - 5.1 mmol/L 10/09/2024 2:52 PM [facility] CHLORIDE 107 98 - 107 mmol/L 10/09/2024 2:52 PM [facility] CO2, VENOUS 26 22 - 30 mmol/L 10/09/2024 2:52 PM [facility] ANION GAP 12.7 <18.0 mmol/L 10/09/2024 2:52 PM [facility] GLUCOSE 109(H) 70 - 99 mg/dL 10/09/2024 2:52 PM [facility] BUN 15 10 - 20 mg/dL 10/09/2024 2:52 PM [facility] CREATININE, BLOOD 0.94 0.60 - 1.00 mg/dL 10/09/2024 2:52 PM [facility] BUN/CREATININE RATIO 16 12 - 20 ratio 10/09/2024 2:52 PM [facility] TOTAL PROTEIN 8.3(H) 6.0 - 8.0 g/dL 10/09/2024 2:52 PM [facility] ALBUMIN 4.3 3.5 - 5.0 g/dL 10/09/2024 2:52 PM ULTRASONIC CLEANER [facility] A/G RATIO 1.1 1.0 - 2.2 10/09/2024 2:52 PM ULTRASONIC CLEANER [facility] CALCIUM 9.8 8.7 - 10.5 mg/dL 10/09/2024 2:52 PM ULTRASONIC CLEANER [facility] T BILI 0.4 0.2 - 1.2 mg/dL 10/09/2024 2:52 PM ULTRASONIC CLEANER [facility] SGOT (AST) 22 6 - 42 U/L 10/09/2024 2:52 PM ULTRASONIC CLEANER [facility] SGPT (ALT) 18 6 - 55 U/L 10/09/2024 2:52 PM ULTRASONIC CLEANER [facility] ALKALINE PHOSPHATASE 114 40 - 150 U/L 10/09/2024 2:52 PM ULTRASONIC CLEANER [facility] GFR, ESTIMATED >60 >=60 10/09/2024 2:52 PM ULTRASONIC CLEANER [facility] Comment: Creatinine Clearance is the preferred criteria for selecting drug dose adjustments in renally impaired patients. The GFR is provided as additional pertinent clinical information. GFR is reported in mL/min/1.73 sq m. Calculation based on the Chronic Kidney Disease Epidemiology Collaboration (CKD- EPI) equation refit without adjustment for race. GFR, EST. >60 >=60 025 2:52 PM ULTRASONIC CLEANER [facility] GFR, EST. NONAFRICAN 60 >=60 10/09/2024 2:52 PM ULTRASONIC CLEANER [facility] Blood Venipuncture / Unknown 10/09/2024 2:23 PM ULTRASONIC CLEANER 10/09/2024 2:32 PM ULTRASONIC CLEANER us Kalyn Vázquez APRN, VICE PRESIDENT SUPPLY CHAIN CHEMISTRY ORDERABLES Final Result [facility] [address] [place] [address] * B-Type Natriuretic Peptide (BNP) (10/09/2024 2:23 PM ULTRASONIC CLEANER) B TYPE NATRIURETIC PEPTIDE 29 <100 pg/mL 10/09/2024 5:41 PM ULTRASONIC CLEANER [facility] Blood Venipuncture / Unknown 10/09/2024 2:23 PM ULTRASONIC CLEANER 10/09/2024 2:32 PM ULTRASONIC CLEANER us Chula Barr MD CHEMISTRY ORDERABLES Final Re sult Performing Organization Address City/[facility]/ZIP Co de Phone Number [facility] [address] [place] [address] * EKG 12 LEAD (10/09/2024 2:12 PM ULTRASONIC CLEANER) Ventricular Rate 71 BPM EXTERNAL EKG Atrial Rate 71 BPM EXTERNAL EKG P-R Interval 138 ms EXTERNAL EKG QRS Duration 80 ms EXTERNAL EKG Q-T Duration 340 ms EXTERNAL EKG QTC CALCULATION 369 ms EXTERNAL EKG P [place] 49 degrees EXTERNAL EKG R [place] 18 degrees EXTERNAL EKG T [place] 47 degrees EXTERNAL EKG 10/09/2024 2:12 PM ULTRASONIC CLEANER Impressions EXTERNAL EKG - 10/10/2024 3:03 PM ULTRASONIC CLEANER Normal sinus rhythm Nonspecific ST abnormality Abnormal ECG No previous ECGs available Confirmed by Pilo Wolf ([id number]) on 10/10/2024 3:03:22 PM Narrative Procedure Note Pilo Wolf MD - 10/10/2024 IMPRESSION: Normal sinus rhythm Nonspecific ST abnormality Abnormal ECG No previous ECGs available Confirmed by Pilo Wolf ([id number]) on 10/10/2024 3:03:22 PM us Nadeem Childress MD IMG ECG ORDERABLES Final R esult Performing Organization Address City/[facility]/ZIP Co de Phone Number EXTERNAL EKG * EKG SCAN (10/09/2024 12:00 AM ULTRASONIC CLEANER) 10/09/2024 us Provider Scan IMG ECG ORDERABLES Final Result RESULTING AGENCY from Last 3 Months Insurance MEDICAID AETNA [facility] Advance Directives * Full Code (Latest Code Status on File) Date Activated Date Inactivated Comments 10/09/2024 10:00 PM CPR-Full Parul tment: FULL ARREST: Attempt Resuscitation/CPR wit intubation and mechanical ventilation. PRE-ARREST: Use entire range of life support measures to stabilize the patient. Care Teams Rn Invasive Relationship Specialty Start Date End Date Estuardo Plunkett MD [address] [place] [address] PCP - General Internal Medicine 10/09/24
--- OUTSIDE RECORDS SUMMARY | 2024-12-22 10:19 | XMS_ITS | Clinical Summary ---
Author Organization [facility] Address [address] [place] [id number] Care Team Providers Care Wire Splicer Name Role Phone Estuardo Plunkett MD Primary Care Provider [phone] Encounters Date Type Department Care Team Description 12/01/2024 8:34 AM CDT - 12/01/2024 11:59 PM CDT Hospital Encounter [facility] [address] [facility] [place] [address] Ankit King, DPM Discharge Disposition: Home or Self Care (Routine Discharge) 12/01/2024 Travel from Last 3 Months Social History Tobacco Use Types Packs/Day Years Used Date Smoking Tobacco: Never Assessed Comments Unknown Sex and Gender Information Value Date Recorded Sex Assigned at Female 11/24/2024 8:15 AM CDT Legal Sex Female 7:24 PM CDT Gender Identity Not on file Sexual Orientation Not on file Plan of Treatment Health Maintenance Due Date Last Done Comments Cervical Cancer Screening Pa p Smear (Age 30 to 64) Every 3 Years 1961 Colorectal Cancer Screening Colonoscopy (10 Years) 1961 Annual Physical 01/03/1964 Hepatitis C 1979 Cervical Cancer Screening Pa p with HPV Testing (Age 30 to 64) Every 5 Years 1991 Cervical Cancer Screening wi th HPV 1991 Mammogram Screening 2001 Zoster Vaccines (1 of 2) 2011 COVID-19 Vaccine (2023-2 5 season) 2024 04/16/2021, 03/26/2021 DTaP, Tdap and Td Vaccines ( 2 - Td or Tdap) 03/05/2030 03/05/2020 RSV Immunization or 60+ Years (1 - 1-dose 75+ series) 01/03/2036 Meningococcal B Vaccine Aged Out No l onger eligible based on patient's age to complete this topic Meningococcal Vaccine Aged Out No omkar vinny eligible based on patient's age to complete this topic Pneumococcal Vaccine: Pediatrics (0 to 5 Years) and At-Risk Patients (6 to 64 Years) Aged Out No longer eligible b ased on patient's age to complete this topic RSV Immunizations Under 20 Months Aged Out No longer eligible b ased on patient's age to complete this topic Procedures Procedure Name Priority Date/Time Associated Diagnosis Comments XR UGI Routine 12/01/2024 9:19 AM CDT Atypical chest pain Hiatal hernia from Last 3 Months Results * XR UGI (12/01/2024 9:19 AM CDT) Anatomical Region Laterality Modality Abdomen Radiographic Estefania ging, Radiographic Imaging 12/01/2024 9:43 AM CDT Impressions 12/01/2024 9:47 AM CDT IMPRESSION: Very small sliding-type hiatal hernia. Otherwise unremarkable. Ordered By: ANKIT KING Interpreted By: Triston Griffith MD, 12/01/2024 9:43 AM Narrative 12/01/2024 9:47 AM CDT [address] [place] [address] Examination: Double contrast upper GI series. Exam time: 0809 hours. Clinical history: Chest pain. Comparison: None. Technique: Fluoroscopic monitoring with spot imaging. 2 minutes of fluoroscopy time was utilized. 18 digital spot and/or digital radiographs were obtained. Findings: The swallowing mechanism is normal. The esophagus is intact. Esophageal motility is within normal limits. There is a very small sliding-type hiatal hernia. No spontaneous or inducible gastroesophageal reflux was observed fluoroscopically. The stomach shows no mass or ulceration. The duodenal bulb expands to a normal configuration. The duodenal sweep is unremarkable. Procedure Note Triston Griffith MD - 12/01/2024 [place] [address] [place] [address] Examination: Double contrast upper GI series. Exam time: 0809 hours. Clinical history: Chest pain. Comparison: None. Technique: Fluoroscopic monitoring with spot imaging. 2 minutes offluoroscopy time was utilized. 18 digital spot and/or digital radiographswere obtained. Findings: The swallowing mechanism is normal. The esophagus is intact.Esophageal motility is within normal limits. There is a very smallsliding-type hiatal hernia. No spontaneous or inducible gastroesophagealreflux was observed fluoroscopically. The stomach shows no mass or ulceration. The duodenal bulb expands to anormal configuration. The duodenal sweep is unremarkable. IMPRESSION: Very small sliding-type hiatal hernia. Otherwise unremarkable. Ordered By: ANKIT KING Interpreted By: Triston Griffith MD, 12/01/2024 9:43 AM Ankit King DPM FLUOROSCOPY Final Result from Last 3 Months Insurance [id number] Care Teams Wire Splicer Relationship Specialty Start Date End Date Estuardo Plunkett MD [address] [place] [address] PCP - General INTERNAL MEDICINE 12/01/24
[2024-12-22 11:14] LABS: Alanine Aminotransferase 37 U/L (14-59); Albumin Level 3.8 g/dL (3.4-5.0); Alkaline Phosphatase 130 U/L (46-116); Anion Gap 8 mmol/L (4-12); Aspartate Amino Transferase 17 U/L (15-37); Bilirubin,Total 0.5 mg/dL (0.00-1.00); Blood Urea Nitrogen 17 mg/dL (7-18); Carbon Dioxide 27 mmol/L (21-32); Chloride 106 mmol/L (98-108); Cholesterol 176 mg/dL (0-200); Estimated Glomerular Filt Rate 57; Glucose 88 mg/dL (70-99); HDL Direct 100 mg/dL (40-60); LDL Cholesterol Calculated 71 mg/dL (<130); Osmolality Calculated 292 mOsm/kg (285-295); Potassium 4.6 mmol/L (3.5-5.1); Sodium 141 mmol/L (136-145); Thyroid Stimulating Hormone 6.56 uIU/mL (0.36-3.74); Total Protein 7.4 g/dL (6.4-8.2); Triglycerides 27 mg/dL (0-150)
== END 2024-12-22 09:46 | disposition home or self-care (01) ==
LOC: CHSLAB 09:49
PROVIDERS: PCP Internal Medicine; Visit Provider Internal Medicine
DX: E78.5 Hyperlipidemia, unspecified (principal); I10 Essential (primary) hypertension
CPT/HCPCS: 36415; 80053; 80061; 81003; 84443; 85027

== ENCOUNTER 2025-02-06 15:17 | Outpatient (CLI) | payer OTHER, SELFPAY ==
--- NOTE | ~2025-02-06 | CT_ITS ---
CT abdomen pelvis w con Ordering provider: Rena Do, ORIGINATION SPECIALIST History: 65 years Female with . Hx of Diverticulitis, Low abd cramping, Constant BM . Comparison: None. Technique: CT abdomen and pelvis with IV and without oral contrast. Automated exposure control and it erative reconstruction technique were employed. The dose-length product was 538.76 mGy-cm. 100 mL Omn ipaque 350 was given IV. Findings: VISUALIZED LOWER CHEST: Normal. Possible defect in the posterior left diaphragm. Follow-up advised. UPPER ABDOMINAL ORGANS: Liver: Cyst is seen in the area adjacent to the gallbladder measuring 3.8 x 4.6 cm. Tiny cyst in the left lobe of the liver. Gallbladder: Normal. Spleen: Normal. Stomach/duodenum: Sliding hiatus hernia. Pancreas: Normal. Adrenals: Normal. Kidneys: Right kidney upper pole cyst is seen measuring 2.3 x 1.7 cm. Smaller one measuring 1 cm in t he mid pole. Parapelvic cysts are seen on the left side. PELVIC ORGANS: The bladder is underfilled with thickened wall.. Right ovarian cyst is seen measuring 2.5 cm. BOWEL AND MESENTERY: Colon: Mild sigmoid diverticulosis without diverticulitis. Slightly thickened wall of the sigmoid col on may indicate colitis. Clinical correlation advised. Normal appendix. Small Bowel: Normal. No obstruction. Peritoneum/mesentery: No free air or free fluid. No mesenteric lymphadenopathy. RETROPERITONEUM: Mild atheromatous disease of the abdominal aorta. No retroperitoneal lymphadenopat hy. MUSCULOSKELETAL: Superficial soft tissues: Small fat-containing umbilical hernia. The superficial soft tissues are nor mal. Bones: Normal spine. IMPRESSION: 1. No evidence of appendicitis, diverticulitis or intestinal obstruction. 2. Slight thickening of the wall of the sigmoid colon which may indicate colitis. Clinical correlati on advised. 3. Cyst in the liver adjacent to the gallbladder. 4. Bilateral kidney cysts. 5. Possible defect in the left hemidiaphragm posteriorly. Reviewed, dictated and finalized at location A. IMPRESSION: 1. No evidence of appendicitis, diverticulitis or intestinal obstruction. 2. Slight thickening of the wall of the sigmoid colon which may indicate colit is. Clinical correlation advised. 3. Cyst in the liver adjacent to the gallbladder. 4. Bilateral kidney cysts. 5. Possible defect in the left hemidiaphragm posteriorly.
--- OUTSIDE RECORDS SUMMARY | 2025-02-06 15:25 | XMS_ITS | Clinical Summary ---
Author Organization [facility] Address [address] [place] [address] Phone Care Team Providers Care Quality Rn Name Role Phone Estuardo Plunkett MD Primary Care Provider [phone] Allergies Active Allergy Reactions Criticality Noted Date [...] Take 2 Capsules by mouth daily. Active atorvastatin (LIPITOR) 20 MG Tablet Take 1 Tablet by mouth daily. 90 Tablet 5 Active aspirin 81 MG Chewable Tablet Take 1 Tablet by mouth daily for 90 days. 90 Tablet 5 01/10/20 25 amLODIPine (NORVASC) 5 MG Tablet Take 1 Tablet by mouth daily for 90 days. 90 Tablet 5 01/10/20 25 famotidine (PEPCID) 20 MG Tablet Take 1 Tablet by mouth 2 times daily for 90 days. 90 Tablet 5 01/09/20 25 Active Problems Problem Noted Date Diagnosed Date Hyperlipidemia 10/10/2024 Diverticulitis Hypertension Resolved Problems Problem Noted Date Diagnosed Date Resolved Date Chest pain 10/09/2024 10/10/2024 Constipation 10/10/2024 Family History Medical History Relation Name Comments Congestive Heart Failure Brother Heart Attack Brother Hypertension Father Hypertension Mother Relation Name Status Comments Brother Father Mother Social History Tobacco Use Types Packs/Day Years Used Date Smoking Tobacco: Former Cigarettes Smokeless Tobacco: Former Comments:Pt stop smoking tob acco 10yrs ago and stopped vaping 3 yrs ago [facility] Utilities Answer Date Recorded In the past 12 months has th Clusterize, gas, oil, or water [employer] threatened to shut off services in your home? No 10/09/2024 Social Connection and Isolation Panel [NHANES] A nswer Date Recorded In a typical week, how many times do you talk on the phone with family, friends, or neighbors? Once a week 10/09/2024 How often do you get together with friends or re latives? Once a week 10/09/2024 How often do you attend moravian or yarsanism serv ices? Never 10/09/2024 Do you belong to any clubs o r organizations such as moravian groups, unions, fraternal or athletic groups, or [...] medical care, and heating? Somewhat hard 10/09/2024 [facility] [place] of Occupat ional Health - Occupational Stress Questionnaire Answer Date Recorded [...] time in the past 12 m [facility], were you homeless or living in a snf (including now)? No 10/09/2024 Comments No Sex and Gender Information Value Date Recorded Sex Assigned at Not on file Legal Sex Female 2:06 PM [employer] Gender Identity Not on file Sexual Orientation Not on file Last Filed Vital Signs Vital Sign Reading Time Taken Comments Blood Pressure 156/97 10/10/2024 12:00 PM [employer] Pulse 67 10/10/2024 12:00 PM [employer] Temperature 36.8 C (98.2 F) 10/10/2024 12:00 PM [employer] Respiratory Rate 18 10/10/2024 12:00 PM [employer] Oxygen Saturation 99% 10/10/2024 12:00 PM [employer] Inhaled Oxygen Concentration - - Weight 80.3 kg (177 lb) 10/10/2024 8:58 AM [employer] Height 170.2 cm (5' 7) 10/10/2024 8:58 AM [employer] Body Mass Index 27.72 10/10/2024 8:58 AM [employer] Plan of Treatment Health Maintenance Due Date Last Done Comments Hepatitis C Virus (HCV) Screening 1961 Mammogram 1961 Pap Smear 1982 Cervical Cancer Screening (CCS) 1991 HPV/Cotest 1991 Colonoscopy 2006 Colorectal Cancer Screening 2006 Cologuard 2011 Immunochemical Fecal Occult Blood 2011 Pneumococcal Immunization (50+ years) (1 of 1 - PCV) 2011 Zoster Immunization (1 of 2) 2011 SARS-COV-2 Immunization (3 - 2023- season) 2024 04/16/2021, 03/26/2021 Respiratory Syncytial Virus [...] on patient's age to complete this topic Insurance MEDICAID [employer] Advance Directives * Full Code (Latest Code Status on File) Date Activated Date Inactivated Comments 10/09/2024 10:00 PM CPR-Full Parul tment: FULL ARREST: Attempt Resuscitation/CPR wit intubation and mechanical ventilation. PRE-ARREST: Use entire range of life support measures to stabilize the patient. Care Teams Quality Rn Relationship Specialty Start Date End Date Estuardo Plunkett MD [address] [place], [place] [id number] PCP - General Internal Medicine 10/09/24
[2025-02-06 15:55] LABS: Alanine Aminotransferase 33 U/L (6-35); Albumin Level 4.4 g/dL (3.5-5.1); Alkaline Phosphatase 127 U/L (38-126); Amylase 116 U/L (30-110); Anion Gap 3 mmol/L (4-12); Aspartate Amino Transferase 37 U/L (14-36); Bilirubin,Total 0.9 mg/dL (0.2-1.3); Blood Urea Nitrogen 10 mg/dL (7-17); Calcium 9.1 mg/dL (8.4-10.2); Carbon Dioxide 27 mmol/L (22-30); Chloride 108 mmol/L (98-107); Estimated Glomerular Filt Rate > 60; Glucose 94 mg/dL (65-110); Lipase 169 U/L (23-300); Osmolality Calculated 285 mOsm/kg (285-295); Potassium 4.1 mmol/L (3.4-5.0); Sodium 138 mmol/L (137-145); Total Protein 7.8 g/dL (6.3-8.2)
[2025-02-06 16:06] LABS: Hematocrit 44.4 % (35.0-49.0); Hemoglobin 13.9 g/dL (12.0-15.0); Mean Corpuscular HGB Conc 31.3 g/dL (32-36); Mean Corpuscular Hemoglobin 27.9 pg (27.0-31.0); Mean Corpuscular Volume 89.2 fL (78.0-102.0); Mean Platelet Volume 9.4 fl (9.2-11.8); Platelet Count Result 337 K/mm3 (150-420); Red Blood Count 4.98 M/mm3 (4.20-5.40); Red Cell Distribution Width 13.8 % (11.6-14.4); White Blood Count 9.2 K/mm3 (4.8-10.8)
== END 2025-02-06 15:18 | disposition home or self-care (01) ==
PROVIDERS: PCP Internal Medicine; Visit Provider Nurse Practitioner Family
DX: K57.92 Diverticulitis of intestine, part unspecified, without perforation or abscess without bleeding (principal); R10.32 Left lower quadrant pain; K76.89 Other specified diseases of liver; N28.1 Cyst of kidney, acquired
CPT/HCPCS: 36415; 74177; 80053; 82150; 83690; 85027; Q9967